=== PATIENT | male | born 1955 | race Caucasian/White ===

== ENCOUNTER 2018-10-19 06:35 | Emergency (ER) | payer OTHER, SELFPAY ==
[2018-10-19] VITALS (27 sets, daily range): BP systolic 96–128; BP diastolic 56–86; PULSE 53–123; RESP 10–20; TEMP 36.1–36.5; O2SAT 96–100; BMI 31.7
[2018-10-19 07:00] LABS: Add Manual Diff / Slide Review NO; Basophils Absolute Auto 0 /uL (0-100); Basophils Percent Auto 0.6 % (0-2); Eosinophils Absolute Auto 100 /uL (0-450); Eosinophils Percent Auto 1.7 % (2-4); Hematocrit 43.5 % (41-53); Hemoglobin 14.6 g/dL (13.5-17.5); Lymphocytes Absolute Auto 1600 /uL (1100-4500); Lymphocytes Percent Auto 23.5 % (25-40); Mean Corpuscular HGB Conc 33.6 % (30-36); Mean Corpuscular Hemoglobin 29.5 PG (26-34); Mean Corpuscular Volume 87.8 fL (80-100); Monocytes Absolute Auto 500 /uL (0-900); Monocytes Percent Auto 7.9 % (3-14); Neutrophils Absolute Auto 4600 /uL (1500-7000); Neutrophils Percent Auto 66.3 % (50-75); Platelet Count 308 X10^3/uL (150-400); Red Blood Cell Count 4.96 X10^6/uL (4.5-5.9); Red Cell Distribution Width 13.8 % (11.6-14.8); White Blood Cell Count 6.9 X10^3/uL (4.5-11.0)
[2018-10-19 07:05] LABS: INR 1.5 (0.9-1.3); Prothrombin Time 17.8 SECONDS (10.1-12.7)
--- NOTE | 2018-10-19 07:07 | ED.ARRPALP ---
HPI - Arrhythmia/Palpitations General Chief Complaint: Arrhythmia/Palpitations Stated Complaint: hx of a-fib x2 weeks Time Seen by Provider: 10/19/18 06:40 Source: patient Mode of arrival: ambulatory Limitations: no limitations History of Present Illness HPI narrative: A 63-year-old male comes in with complaint of AFib since that is not rate controlled. Patient also has a little bit tightness in his chest. He has been having this increasingly over the last 2 weeks. He states that helped will occasionally no stool tightness, given a little shortness of breath with exertion. He states it can be fairly mild exertion like walking [place] with his briefcase periods patient has not been passing out. He has not had any sweats, has a nausea or vomiting. Or diaphoresis. Patient has had atrial fibrillation for about 8 or 9 years. He had a catheterization in 2014 which did show a 50% occlusion of the LAD and he has had an ablation in the past. Patient states he has noticed that is a fibs been a little bit worse over time. He saw his brick setter about 2 weeks ago. They increased his Cardizem from 180 mg daily to 120 mg twice daily and given him metoprolol 25 mg as needed. He is on Xarelto for anticoagulation. He states he has noticed that was on metoprolol his asthma has been acting up a little bit more. Patient states he came in overnight because his heart rate was elevated he took metoprolol twice once at 10:00 p.m. and again at 2:00 a.m.. It improved his heart rate but then it returned. Patient has a history of prostate cancer which they are far itching, he had a TURP in 2007. He has GERD, some seasonal allergies along with his asthma in atrial fibrillation. He has had hernia repair. He does take a statin, Symbicort, as well as pantoprazole and montelukast regularly. through [facility] is his brick setter Related Data Home Medications Medication Instructions Recorded Confirmed budesonide-formoterol [Symbicort] 1 puff INHALATION DIRECTED 10/19/18 Previous Rx's Medication Instructions Recorded dronedarone [Multaq] 400 mg PO BID #60 tab 10/19/18 Allergies Allergy/AdvReac Type Severity Reaction Status Date / Time No Known Drug Allergies Allergy Verified 10/19/18 06:53 Review of Systems Review of Systems ROS Unobtainable: All systems reviewed & are unremarkable except as noted in HPI and below Constitutional Denies chills, Denies fever(s), Denies lethargy and Denies weakness Cardiovascular Reports chest pain (tightness), Denies diaphoresis, Denies syncope, Reports rapid heart rate, Reports pedal edema (comes and goes), Reports irregular heart rhythm, Denies lightheadedness, Denies radiating jaw, neck or arm pain, Denies palpitations, Denies dyspnea and Reports dyspnea on exertion Respiratory Denies chest congestion, Denies dyspnea and Reports dyspnea on exertion Gastrointestinal Gastrointestinal: Denies abdominal pain, Denies change in bowel habits, Denies diarrhea, Denies nausea and Denies vomiting Neurologic Denies syncope and Denies weakness Endocrine Denies palpitations [facility] Medical History (Updated 10/19/18 @ 08:10 by Alma Delia Diggs DO) Asthma (Chronic) GERD (gastroesophageal reflux disease) (Chronic) Paroxysmal A-fib (Chronic) Prostate cancer (Chronic) Seasonal allergies (Chronic) Seasonal allergies (Chronic) Surgical History (Updated 10/19/18 @ 07:43 by Alma Delia Diggs DO) H/O hernia repair (Chronic) History of cardiac catheterization (Chronic) History of radiofrequency ablation (RFA) procedure for cardiac arrhythmia (Chronic) S/P TURP (Chronic) Social History (Updated 10/19/18 @ 07:43 by Alma Delia Diggs DO) Smoking Status: Never smoker alcohol intake: current substance use type: does not use Social History (Updated 10/19/18 @ 07:43 by Alam Delia Diggs DO) Smoking Status: Never smoker alcohol intake: current substance use type: does not use Exam Narrative Exam Narrative: GENERAL: Alert and oriented x three, well-nourished, well-appearing male in no acute distress. HEENT: Head normocephalic, atraumatic, EOMI, pupils reactive, face symmetric, moist mucous membranes NECK: Supple, full range of motion CARDIOVASCULAR: Irregularly irregular rate and rhythm without murmurs, rubs or gallops. No edema bilateral lower extremities. No JVD appreciated. RESPIRATORY: Breath sounds equal bilaterally, no wheezes rales or rhonchi. No tachypnea or accessory muscle use. ABDOMEN: Soft, nontender. Normoactive bowel sounds all 4 quadrants. No guarding or rebound, rigidity, no mass EXTREMITIES: Normal range of motion, no clubbing or edema. Neurovascularly intact NEUROLOGICAL: Cranial nerves II through XII grossly intact. Moving all extremities SKIN: Warm, dry, no petechiae, no rashes or lesions. Initial Vital Signs Initial Vital Signs: Vital Signs Temperature 97.7 F 10/19/18 06:45 Pulse Rate 112 H 10/19/18 06:45 Respiratory Rate 15 10/19/18 06:45 Blood Pressure 106/76 10/19/18 06:45 Pulse Oximetry 100 10/19/18 06:45 Procedures Cardioversion Consent Signed: Yes Indication: afib with rapid ventricular response, hypotension. Cardiac rhythm prior to cardioversion: AFib with RVR Stability: Stable Number of attempts (shocks): 2 Joules used: 150 and 200 Cardiac rhythm post-cardioversion: Sinus bradycardia Procedural Sedation Patient Age: Patient is 5yrs or older Consent signed: Yes Time out performed: Yes Indication: cardioversion ASA Class: II Mallampati Airway Classification: Class II Time of Last PO Intake: 12:00 Preparation: manager cardiac cath applied, pulse oximeter, capnometry used, suction/airway equipment at bedside and IV secured IV Etomidate dose (mg): 9 ED Sedation Level: Moderate (Concious) Patient Tolerated Procedure: Well Complications: none (patient did have some dry heaves about 30 minutes after medications given. Resolved with zofran. ) Course Orders Ordered: ED Orders 10/19/18 10:05 EKG-12 Lead Routine Discontinued Medications Etomidate (Amidate) 9 mg IV NOW ONE Stop: 10/19/18 09:52 Last Admin: 10/19/18 09:58 Dose: 9 mg Sodium Chloride (Normal Saline 0.9%) 1,000 mls @ 1,000 mls/hr IV BOLUS ONE Stop: 10/19/18 08:36 Last Infusion: 10/19/18 09:34 Dose: 0 mls/hr Admin: 10/19/18 07:42 Dose: 1,000 mls/hr Sodium Chloride (Normal Saline 0.9%) 1,000 mls @ 150 mls/hr IV CONT GINNY Last Infusion: 10/19/18 15:28 Dose: 0 mls/hr Admin: 10/19/18 09:41 Dose: 150 mls/hr Ondansetron HCl (Zofran) 4 mg IV NOW ONE Stop: 10/19/18 10:24 Last Admin: 10/19/18 10:23 Dose: 4 mg Vital Signs - 8 hr 10/19/18 09:56 10/19/18 10:00 10/19/18 10:04 Temperature Pulse Rate 94 H 123 H 118 H Respiratory Rate 16 20 12 Blood Pressure Blood Pressure [Left Arm] 97/66 122/84 Blood Pressure [Right Arm] 112/76 Pulse Oximetry 100 100 10/19/18 10:10 10/19/18 10:15 10/19/18 10:20 Temperature Pulse Rate 70 61 62 Respiratory Rate 10 L 12 10 L Blood Pressure Blood Pressure [Left Arm] Blood Pressure [Right Arm] 128/79 109/77 107/77 Pulse Oximetry 99 99 99 10/19/18 10:27 10/19/18 10:30 10/19/18 10:35 Temperature Pulse Rate 62 55 L 62 Respiratory Rate 13 10 L 12 Blood Pressure Blood Pressure [Left Arm] Blood Pressure [Right Arm] 103/70 101/66 Pulse Oximetry 99 99 100 10/19/18 10:41 10/19/18 10:52 10/19/18 10:55 Temperature Pulse Rate 54 L 59 L 59 L Respiratory Rate 14 12 16 Blood Pressure Blood Pressure [Left Arm] 101/73 101/77 Blood Pressure [Right Arm] 106/56 L Pulse Oximetry 100 98 99 10/19/18 11:02 10/19/18 11:30 10/19/18 12:06 Temperature Pulse Rate 58 L 56 L 57 L Respiratory Rate 15 12 19 Blood Pressure Blood Pressure [Left Arm] 105/76 106/80 103/78 Blood Pressure [Right Arm] Pulse Oximetry 99 100 98 10/19/18 12:36 10/19/18 12:59 10/19/18 14:15 Temperature Pulse Rate 53 L 57 L 71 Respiratory Rate 14 18 18 Blood Pressure Blood Pressure [Left Arm] 96/73 101/69 Blood Pressure [Right Arm] Pulse Oximetry 100 100 96 10/19/18 15:10 10/19/18 15:32 Temperature 97.0 F L Pulse Rate 65 66 Respiratory Rate 17 16 Blood Pressure 108/76 Blood Pressure [Left Arm] 108/76 Blood Pressure [Right Arm] Pulse Oximetry 99 99 MDM - Arrhythmia/Palpitations Lab Data Attestation: I reviewed the patient's lab results. Result diagrams: 10/19/18 06:45 10/19/18 06:45 Lab Results 10/19/18 10/19/18 10/19/18 Range/Units 06:45 06:45 06:45 WBC 6.9 (4.5-11.0) X10^3/uL RBC 4.96 (4.5-5.9) X10^6/uL Hgb 14.6 (13.5-17.5) g/dL Hct 43.5 (41-53) % MCV 87.8 (80-100) fL MCH 29.5 (26-34) PG MCHC 33.6 (30-36) % RDW 13.8 (11.6-14.8) % Plt Count 308 (150-400) X10^3/uL Neut % (Auto) 66.3 (50-75) % Lymph % (Auto) 23.5 L (25-40) % Gilliam % (Auto) 7.9 (3-14) % Eos % (Auto) 1.7 L (2-4) % Baso % (Auto) 0.6 (0-2) % Neut # (Auto) 4600 (7428-5974) /uL Lymph # (Auto) 1600 (9095-7649) /uL Gilliam # (Auto) 500 (0-900) /uL Eos # (Auto) 100 (0-450) /uL Baso # (Auto) 0 (0-100) /uL PT 17.8 H (10.1-12.7) SECONDS INR 1.5 H (0.9-1.3) APTT 47 H (26.4-36.2) SECONDS Sodium 140 (137-145) mmol/L Potassium 4.9 (3.4-5.1) mmol/L Chloride 107 (98-107) mmol/L Carbon Dioxide 26 (22-32) mmol/L BUN 21 H (9-20) mg/dL Creatinine 1.20 (0.66-1.25) mg/dL Estimated GFR > 60.0 (>60) mL/min BUN/Creatinine Ratio 17.5 (6-22) Glucose 146 H (80-110) mg/dL Calcium 9.1 (8.4-10.2) mg/dL Total Bilirubin 0.5 (0.2-1.3) mg/dL AST 21 (17-59) IU/L ALT 34 (21-72) IU/L Alkaline Phosphatase 65 (38-126) U/L Troponin I < 0.012 (0.01-0.034) ng/mL B-Natriuretic Peptide 394 H (<100) Total Protein 6.7 (6.3-8.2) g/dL Albumin 3.9 (3.5-5.0) g/dL Globulin 2.8 (1.7-4.1) g/dL Albumin/Globulin Ratio 1.4 (1.0-2.8) Imaging Data Chest x-ray: Attestation: I personally reviewed and interpreted this imaging study as follows: Radiologist's impression: [address] [address] XRay Report Signed Patient: Jamie Barros [facility]#: [id number] : 7Acct:[id number] Age/Sex: 63 / MDate of Service: 10/19/18 Loc: ED Accession Number: [id number] Procedure: XR chest 1V Ordering Provider: Alma Delia Diggs D.O. PROCEDURE: XR CHEST 1V INDICATIONS: afib, chest tightness TECHNIQUE: One view of the chest was acquired. COMPARISON: None. FINDINGS: Surgical changes and devices: None. Lungs and pleura: Lungs are clear. No pleural effusions or pneumothorax. Mediastinum: Mediastinal contours appear normal. Heart size is normal. Bones and chest wall: No suspicious bony lesions. Overlying soft tissues appear unremarkable. IMPRESSION: The patient positioning is lordotic, which accentuates the cardiac silhouette but true cardiomegaly does not appear present. No sign of CHF. Dictated by: Rodrigo Martínez M.D. on 10/19/2018 at 8:22 Approved by: Rodrigo Martínez M.D. on 10/19/2018 at 8:23 ECG Data Attestation: I personally reviewed and interpreted this ECG as follows: Prior ECG tracings: not available for review Interpretation: AFib with rapid ventricular response. Rate of 115 QRS of 116 QTC 389. Incomplete right bundle branch block. EKG 2. Shows a sinus bradycardia with a rate of 54 P are of 186, QRS of 119 and QTC of 408. Patient has RSR in [address] elevation appreciated. ST segments appear similar to prior EKG from today as well as EKG from 10/08/2018 from his cardiology office. MDM Narrative Medical decision making narrative: Patient's brick setter Dr. rascon was contacted for old EKG, echo as well as last visit. Patient's lab work shows a slight elevation in BNP but otherwise normal troponin and lab work. Chest x-ray does not show acute change. Patient's prior EKG does appears similar. We were able to obtain 1 from his cardiology office. Discussed with patient about possibly cardioversion. He is on Xarelto, he is a little hypotensive. Spoke with Dr. Wright if patient has been taking his roll so daily and has not had any missed doses for at least a month a cardioversion would be an option. If it is successful he would recommend Multaq for and mg twice daily and decrease Cardizem to 120 mg once daily. Holding any beta-dewayne. Patient states he does have the long acting Cardizem at home and plenty available. Patient had some dryheaving about a 1/2 hour after medication. Received some Zofran. Patient falls asleep very quickly. He also seems have a little sleep apnea treating his cardioversion. Patient and I discussed this. He has follow-up locally with cardiology but not until November asked to contact for sooner follow-up or he can follow up with his brick setter in [place]. Patient did not have a ride initially. He was able to find a ride 3 co-worker. Discharge Plan Departure Patient Disposition: Home Clinical Impression: Atrial fibrillation with RVR Discharge Date/Time: 10/19/18 15:35 Interventions: ED Discharge Assessment Last Done: 10/19/18 15:32 Instructions: DI for Atrial Fibrillation Activity Restrictions/Additional Instructions: Follow-up with Cardiology, call for an appointment in the next week. Also discuss with your physician about evaluation for sleep apnea. Do not drive, perform has activities or make any major decisions until tomorrow. Start Multaq 400 mg twice daily. Decrease your Cardizem 120 mg once daily. Stop metoprolol. Make sure your drinking plenty of fluids. Return to the emergency department for new weakness, passing out or lightheadedness, chest pain, shortness of breath, fevers greater 100.4 F, persistent AFib with elevated heart rate, persistent vomiting, black or bloody stools or other new or concerning symptoms. Prescriptions: New Multaq 400 mg tablet 400 mg PO BID Qty: 60 RF: 0 No Action Symbicort 80-4.5 mcg/actuation HFA aerosol inhaler 1 puff Inhalation DIRECTED RF: 0 Referrals: Mary Grace Michelle MD [Physician] -
[2018-10-19 07:08] LABS: PTT Partial Thromboplastin Tim 47 SECONDS (26.4-36.2)
[2018-10-19 07:09] LABS: Alanine Aminotransferase 34 IU/L (21-72); Albumin 3.9 g/dL (3.5-5.0); Albumin Globulin Ratio 1.4 (1.0-2.8); Alkaline Phosphatase 65 U/L (38-126); Aspartate Aminotransferase 21 IU/L (17-59); BUN Creatinine Ratio 17.5 (6-22); Bilirubin Total 0.5 mg/dL (0.2-1.3); Blood Urea Nitrogen 21 mg/dL (9-20); Calcium 9.1 mg/dL (8.4-10.2); Carbon Dioxide 26 mmol/L (22-32); Chloride 107 mmol/L (98-107); Estimated Glomerular Filt Rate > 60.0 mL/min (>60); Globulin 2.8 g/dL (1.7-4.1); Glucose 146 mg/dL (80-110); HEMOLYSIS < 15 (0-50); Potassium 4.9 mmol/L (3.4-5.1); Sodium 140 mmol/L (137-145); Total Protein 6.7 g/dL (6.3-8.2)
--- NOTE | 2018-10-19 07:18 | ED_ITS ---
HPI - Arrhythmia/Palpitations General Chief Complaint: Arrhythmia/Palpitations Stated Complaint: hx of a-fib x2 weeks Time Seen by Provider: 10/19/18 06:40 Source: patient Mode of arrival: ambulatory Limitations: no limitations History of Present Illness HPI narrative: A 63-year-old male comes in with complaint of AFib since that is not rate controlled. Patient also has a little bit tightness in his chest. He has been having this increasingly over the last 2 weeks. He states that helped will occasionally no stool tightness, given a little shortness of breath with exertion. He states it can be fairly mild exertion like walking up a [place] with his briefcase periods patient has not been passing out. He has not had any sweats, has a nausea or vomiting. Or diaphoresis. Patient has had atrial fibrillation for about 8 or 9 years. He had a catheterization in 2014 which did show a 50% occlusion of the LAD and he has had an ablation in the past. Patient states he has noticed that is a fibs been a little bit worse over time. He saw his advertiser about 2 weeks ago. They increased his Cardizem from 180 mg daily to 120 mg twice daily and given him metoprolol 25 mg as needed. He is on Xarelto for anticoagulation. He states he has noticed that was on metoprolol his asthma has been acting up a little bit more. Patient states he came in overnight because his heart rate was elevated he took metoprolol twice once at 10:00 p.m. and again at 2:00 a.m.. It improved his heart rate but then it returned. Patient has a history of prostate cancer which they are far itching, he had a TURP in 2007. He has GERD, some seasonal allergies along with his asthma in atrial fibrillation. He has had hernia repair. He does take a statin, Symbicort, as well as pantoprazole and montelukast regularly. through [facility] is his advertiser Related Data Home Medications Medication Instructions Recorded Confirmed budesonide-formoterol [Symbicort] 1 puff INHALATION DIRECTED 10/19/18 Previous Rx's Medication Instructions Recorded dronedarone [Multaq] 400 mg PO BID #60 tab 10/19/18 Allergies Allergy/AdvReac Type Severity Reaction Status Date / Time No Known Drug Allergies Allergy Verified 10/19/18 06:53 Review of Systems Review of Systems ROS Unobtainable: All systems reviewed & are unremarkable except as noted in HPI and below Constitutional Denies chills, Denies fever(s), Denies lethargy and Denies weakness Cardiovascular Reports chest pain (tightness), Denies diaphoresis, Denies syncope, Reports rapid heart rate, Reports pedal edema (comes and goes), Reports irregular heart rhythm, Denies lightheadedness, Denies radiating jaw, neck or arm pain, Denies palpitations, Denies dyspnea and Reports dyspnea on exertion Respiratory Denies chest congestion, Denies dyspnea and Reports dyspnea on exertion Gastrointestinal Gastrointestinal: Denies abdominal pain, Denies change in bowel habits, Denies diarrhea, Denies nausea and Denies vomiting Neurologic Denies syncope and Denies weakness Endocrine Denies palpitations [facility] Medical History (Updated 10/19/18 @ 08:10 by Alma Delia Diggs DO) Asthma (Chronic) GERD (gastroesophageal reflux disease) (Chronic) Paroxysmal A-fib (Chronic) Prostate cancer (Chronic) Seasonal allergies (Chronic) Seasonal allergies (Chronic) Surgical History (Updated 10/19/18 @ 07:43 by Alma Delia Diggs DO) H/O hernia repair (Chronic) History of cardiac catheterization (Chronic) History of radiofrequency ablation (RFA) procedure for cardiac arrhythmia (Chronic) S/P TURP (Chronic) Social History (Updated 10/19/18 @ 07:43 by Alma Delia Diggs DO) Smoking Status: Never smoker alcohol intake: current substance use type: does not use Social History (Updated 10/19/18 @ 07:43 by Alma Delia Diggs DO) Smoking Status: Never smoker alcohol intake: current substance use type: does not use Exam Narrative Exam Narrative: GENERAL: Alert and oriented x three, well-nourished, well- appearing male in no acute distress. HEENT: Head normocephalic, atraumatic, EOMI, pupils reactive, face symmetric, moist mucous membranes NECK: Supple, full range of motion CARDIOVASCULAR: Irregularly irregular rate and rhythm without murmurs, rubs or gallops. No edema bilateral lower extremities. No JVD appreciated. RESPIRATORY: Breath sounds equal bilaterally, no wheezes rales or rhonchi. No tachypnea or accessory muscle use. ABDOMEN: Soft, nontender. Normoactive bowel sounds all 4 quadrants. No guarding or rebound, rigidity, no mass EXTREMITIES: Normal range of motion, no clubbing or edema. Neurovascularly intact NEUROLOGICAL: Cranial nerves II through XII grossly intact. Moving all extremities SKIN: Warm, dry, no petechiae, no rashes or lesions. Initial Vital Signs Initial Vital Signs: Vital Signs Temperature 97.7 F 10/19/18 06:45 Pulse Rate 112 H 10/19/18 06:45 Respiratory Rate 15 10/19/18 06:45 Blood Pressure 106/76 10/19/18 06:45 Pulse Oximetry 100 10/19/18 06:45 Procedures Cardioversion Consent Signed: Yes Indication: afib with rapid ventricular response, hypotension. Cardiac rhythm prior to cardioversion: AFib with RVR Stability: Stable Number of attempts (shocks): 2 Joules used: 150 and 200 Cardiac rhythm post-cardioversion: Sinus bradycardia Procedural Sedation Patient Age: Patient is 5yrs or older Consent signed: Yes Time out performed: Yes Indication: cardioversion ASA Class: II Mallampati Airway Classification: Class II Time of Last PO Intake: 12:00 Preparation: youth nutritional monitor applied, pulse oximeter, capnometry used, suction/airway equipment at bedside and IV secured IV Etomidate dose (mg): 9 ED Sedation Level: Moderate (Concious) Patient Tolerated Procedure: Well Complications: none (patient did have some dry heaves about 30 minutes after medications given. Resolved with zofran. ) Course Orders Ordered: ED Orders 10/19/18 10:05 EKG-12 Lead Routine Discontinued Medications Etomidate (Amidate) 9 mg IV NOW ONE Stop: 10/19/18 09:52 Last Admin: 10/19/18 09:58 Dose: 9 mg Sodium Chloride (Normal Saline 0.9%) 1,000 mls @ 1,000 mls/hr IV BOLUS ONE Stop: 10/19/18 08:36 Last Infusion: 10/19/18 09:34 Dose: 0 mls/hr Admin: 10/19/18 07:42 Dose: 1,000 mls/hr Sodium Chloride (Normal Saline 0.9%) 1,000 mls @ 150 mls/hr IV CONT GINNY Last Infusion: 10/19/18 15:28 Dose: 0 mls/hr Admin: 10/19/18 09:41 Dose: 150 mls/hr Ondansetron HCl (Zofran) 4 mg IV NOW ONE Stop: 10/19/18 10:24 Last Admin: 10/19/18 10:23 Dose: 4 mg Vital Signs - 8 hr 10/19/18 09:56 10/19/18 10:00 10/19/18 10:04 Temperature Pulse Rate 94 H 123 H 118 H Respiratory Rate 16 20 12 Blood Pressure Blood Pressure [Left Arm] 97/66 122/84 Blood Pressure [Right Arm] 112/76 Pulse Oximetry 100 100 10/19/18 10:10 10/19/18 10:15 10/19/18 10:20 Temperature Pulse Rate 70 61 62 Respiratory Rate 10 L 12 10 L Blood Pressure Blood Pressure [Left Arm] Blood Pressure [Right Arm] 128/79 109/77 107/77 Pulse Oximetry 99 99 99 10/19/18 10:27 10/19/18 10:30 10/19/18 10:35 Temperature Pulse Rate 62 55 L 62 Respiratory Rate 13 10 L 12 Blood Pressure Blood Pressure [Left Arm] Blood Pressure [Right Arm] 103/70 101/66 Pulse Oximetry 99 99 100 10/19/18 10:41 10/19/18 10:52 10/19/18 10:55 Temperature Pulse Rate 54 L 59 L 59 L Respiratory Rate 14 12 16 Blood Pressure Blood Pressure [Left Arm] 101/73 101/77 Blood Pressure [Right Arm] 106/56 L Pulse Oximetry 100 98 99 10/19/18 11:02 10/19/18 11:30 10/19/18 12:06 Temperature Pulse Rate 58 L 56 L 57 L Respiratory Rate 15 12 19 Blood Pressure Blood Pressure [Left Arm] 105/76 106/80 103/78 Blood Pressure [Right Arm] Pulse Oximetry 99 100 98 10/19/18 12:36 10/19/18 12:59 10/19/18 14:15 Temperature Pulse Rate 53 L 57 L 71 Respiratory Rate 14 18 18 Blood Pressure Blood Pressure [Left Arm] 96/73 101/69 Blood Pressure [Right Arm] Pulse Oximetry 100 100 96 10/19/18 15:10 10/19/18 15:32 Temperature 97.0 F L Pulse Rate 65 66 Respiratory Rate 17 16 Blood Pressure 108/76 Blood Pressure [Left Arm] 108/76 Blood Pressure [Right Arm] Pulse Oximetry 99 99 MDM - Arrhythmia/Palpitations Lab Data Attestation: I reviewed the patient's lab results. Result diagrams: 10/19/18 06:45 10/19/18 06:45 Lab Results 10/19/18 10/19/18 10/19/18 Range/Units 06:45 06:45 06:45 WBC 6.9 (4.5-11.0) X10^3/uL RBC 4.96 (4.5-5.9) X10^6/uL Hgb 14.6 (13.5-17.5) g/dL Hct 43.5 (41-53) % MCV 87.8 (80-100) fL MCH 29.5 (26-34) PG MCHC 33.6 (30-36) % RDW 13.8 (11.6-14.8) % Plt Count 308 (150-400) X10^3/uL Neut % (Auto) 66.3 (50-75) % Lymph % (Auto) 23.5 L (25-40) % [place] % (Auto) 7.9 (3-14) % Eos % (Auto) 1.7 L (2-4) % Baso % (Auto) 0.6 (0-2) % Neut # (Auto) 4600 (2637-8442) /uL Lymph # (Auto) 1600 (0181-0509) /uL [place] # (Auto) 500 (0-900) /uL Eos # (Auto) 100 (0-450) /uL Baso # (Auto) 0 (0-100) /uL PT 17.8 H (10.1-12.7) SECONDS INR 1.5 H (0.9-1.3) APTT 47 H (26.4-36.2) SECONDS Sodium 140 (137-145) mmol/L Potassium 4.9 (3.4-5.1) mmol/L Chloride 107 (98-107) mmol/L Carbon Dioxide 26 (22-32) mmol/L BUN 21 H (9-20) mg/dL Creatinine 1.20 (0.66-1.25) mg/dL Estimated GFR > 60.0 (>60) mL/min BUN/Creatinine Ratio 17.5 (6-22) Glucose 146 H (80-110) mg/dL Calcium 9.1 (8.4-10.2) mg/dL Total Bilirubin 0.5 (0.2-1.3) mg/dL AST 21 (17-59) IU/L ALT 34 (21-72) IU/L Alkaline Phosphatase 65 (38-126) U/L Troponin I < 0.012 (0.01-0.034) ng/mL B-Natriuretic Peptide 394 H (<100) Total Protein 6.7 (6.3-8.2) g/dL Albumin 3.9 (3.5-5.0) g/dL Globulin 2.8 (1.7-4.1) g/dL Albumin/Globulin Ratio 1.4 (1.0-2.8) Imaging Data Chest x-ray: Attestation: I personally reviewed and interpreted this imaging study as follows: Radiologist's impression: [address] [address] XRay Report Signed Patient: Jamie Barros [facility]#: [id number] : 7Acct:[id number] Age/Sex: 63 / MDate of Service: 10/19/18 Loc: ED Accession Number: [id number] Procedure: XR chest 1V Ordering Provider: Alma Delia Diggs D.O. PROCEDURE: XR CHEST 1V INDICATIONS: afib, chest tightness TECHNIQUE: One view of the chest was acquired. COMPARISON: None. FINDINGS: Surgical changes and devices: None. Lungs and pleura: Lungs are clear. No pleural effusions or pneumothorax. Mediastinum: Mediastinal contours appear normal. Heart size is normal. Bones and chest wall: No suspicious bony lesions. Overlying soft tissues appear unremarkable. IMPRESSION: The patient positioning is lordotic, which accentuates the cardiac silhouette but true cardiomegaly does not appear present. No sign of CHF. Dictated by: Rodrigo Martínez M.D. on 10/19/2018 at 8:22 Approved by: Rodrigo Martínez M.D. on 10/19/2018 at 8:23 ECG Data Attestation: I personally reviewed and interpreted this ECG as follows: Prior ECG tracings: not available for review Interpretation: AFib with rapid ventricular response. Rate of 115 QRS of 116 QTC 389. Incomplete right bundle branch block. EKG 2. Shows a sinus bradycardia with a rate of 54 P are of 186, QRS of 119 and QTC of 408. Patient has RSR in [address] elevation appreciated. ST segments appear similar to prior EKG from today as well as EKG from 10/08/2018 from his cardiology office. MDM Narrative Medical decision making narrative: Patient's advertiser Dr. rascon was contacted for old EKG, echo as well as last visit. Patient's lab work shows a slight elevation in BNP but otherwise normal troponin and lab work. Chest x-ray does not show acute change. Patient's prior EKG does appears similar. We were able to obtain 1 from his cardiology office. Discussed with patient about possibly cardioversion. He is on Xarelto, he is a little hypotensive. Spoke with Dr. Wright if patient has been taking his roll so daily and has not had any missed doses for at least a month a cardioversion would be an option. If it is successful he would recommend Multaq for and mg twice daily and decrease Cardizem to 120 mg once daily. Holding any beta-dewayne. Patient states he does have the long acting Cardizem at home and plenty available. Patient had some dryheaving about a 1/2 hour after medication. Received some Zofran. Patient falls asleep very quickly. He also seems have a little sleep apnea treating his cardioversion. Patient and I discussed this. He has follow- up locally with cardiology but not until November asked to contact for sooner follow-up or he can follow up with his advertiser in [place]. Patient did not have a ride initially. He was able to find a ride 3 co-worker. Discharge Plan Departure Patient Disposition: Home Clinical Impression: Atrial fibrillation with RVR Discharge Date/Time: 10/19/18 15:35 Interventions: ED Discharge Assessment Last Done: 10/19/18 15:32 Instructions: DI for Atrial Fibrillation Activity Restrictions/Additional Instructions: Follow-up with Cardiology, call for an appointment in the next week. Also discuss with your physician about evaluation for sleep apnea. Do not drive, perform has activities or make any major decisions until tomorrow. Start Multaq 400 mg twice daily. Decrease your Cardizem 120 mg once daily. Stop metoprolol. Make sure your drinking plenty of fluids. Return to the emergency department for new weakness, passing out or lighthea dedness, chest pain, shortness of breath, fevers greater 100.4 F, persistent AFib with elevated heart rate, persistent vomiting, black or bloody stools or other new or concerning symptoms. Prescriptions: New Multaq 400 mg tablet 400 mg PO BID Qty: 60 RF: 0 No Action Symbicort 80-4.5 mcg/actuation HFA aerosol inhaler 1 puff Inhalation DIRECTED RF: 0 Referrals: Mary Grace Michelle MD [Physician] -
[2018-10-19 07:21] LABS: Troponin I < 0.012 ng/mL (0.01-0.034)
[2018-10-19 07:26] LABS: B Type Natriuretic Peptide 394 (<100)
[2018-10-19] MEDS: SODIUM CHLORIDE 0.9% 1,000 ML 1000 ML IV (07:42)
[2018-10-19] MEDS: SODIUM CHLORIDE 0.9% 1,000 ML 150 ML IV (09:41)
[2018-10-19] MEDS: ETOMIDATE 2 MG/ML VIAL 9 MG IV (09:58)
[2018-10-19] MEDS: ONDANSETRON 4 MG/2 ML INJ IV (10:23)
--- NOTE | 2018-10-19 10:30 | PC.NURSE ---
tolerated cardioversion. woke up and started to feel clammy and nauseated. dry heeves, vital signs stable. no chest pain. zofran given with good results. pt remains sleepy, easily arousable. frequent reminders to take a deep breath. md aware
--- NOTE | 2018-10-19 13:36 | PC.NURSE ---
Patients respirations keep dropping when he falls asleep. Staff and myself have been frequently checking on the patient due to Apnea alarms. Patient states as soon as he falls asleep he is having REM & instantly starts dreaming.
== END 2018-10-19 15:35 | disposition home or self-care (01) ==
PROVIDERS: Emergency Medicine; Emergency Provider Emergency Medicine
DX: I48.91 Unspecified atrial fibrillation (principal)
CPT/HCPCS: 36591; 71045; 80053; 83880; 84484; 85025; 85610; 85730; 92960; 93005; 96361; 96374; 96375; 99285; 99291; J2405

== ENCOUNTER → 2018-11-27 14:54 | Outpatient (CLI) | payer OTHER, SELFPAY ==
[2018-11-27 17:00] LABS: Prostate Specific Antigen 0.802 ng/mL (0.10-4.00)
== END ==
PROVIDERS: Visit Provider Internal Medicine
DX: C61 Malignant neoplasm of prostate (principal)
CPT/HCPCS: 36415; 84153

== ENCOUNTER → 2019-01-17 07:40 | Outpatient (CLI) | payer OTHER, SELFPAY ==
[2019-01-17 08:54] LABS: Alanine Aminotransferase 40 IU/L (21-72); Albumin 4.3 g/dL (3.5-5.0); Albumin Globulin Ratio 1.4 (1.0-2.8); Alkaline Phosphatase 64 U/L (38-126); Aspartate Aminotransferase 26 IU/L (17-59); BUN Creatinine Ratio 19.1 (6-22); Bilirubin Total 0.7 mg/dL (0.2-1.3); Blood Urea Nitrogen 21 mg/dL (9-20); Calcium 9.7 mg/dL (8.4-10.2); Carbon Dioxide 28 mmol/L (22-32); Chloride 105 mmol/L (98-107); Cholesterol 93 mg/dL (140-199); Estimated Glomerular Filt Rate > 60.0 mL/min (>60); Glucose 122 mg/dL (80-110); HDL Cholesterol 41 mg/dL (40-60); HEMOLYSIS < 15 (0-50); LDL Cholesterol Calculated 38 mg/dL (<100); Potassium 4.4 mmol/L (3.4-5.1); Sodium 141 mmol/L (137-145); Total Protein 7.3 g/dL (6.3-8.2); Triglycerides 68 mg/dL (35-150)
[2019-01-17 08:55] LABS: Add Manual Diff / Slide Review NO; Basophils Absolute Auto 0 /uL (0-100); Basophils Percent Auto 0.6 % (0-2); Eosinophils Absolute Auto 100 /uL (0-450); Eosinophils Percent Auto 1.2 % (2-4); Hemoglobin 14.8 g/dL (13.5-17.5); Lymphocytes Absolute Auto 1300 /uL (1100-4500); Lymphocytes Percent Auto 22.5 % (25-40); Mean Corpuscular HGB Conc 34.3 % (30-36); Mean Corpuscular Volume 87.4 fL (80-100); Monocytes Absolute Auto 600 /uL (0-900); Monocytes Percent Auto 9.8 % (3-14); Neutrophils Absolute Auto 3800 /uL (1500-7000); Neutrophils Percent Auto 65.9 % (50-75); Platelet Count 273 X10^3/uL (150-400); Red Blood Cell Count 4.93 X10^6/uL (4.5-5.9); Red Cell Distribution Width 13.4 % (11.6-14.8); White Blood Cell Count 5.8 X10^3/uL (4.5-11.0)
[2019-01-17 09:52] LABS: Thyroid Stimulating Hormone 2.67 uIU/mL (0.47-4.68)
== END ==
PROVIDERS: Visit Provider Internal Medicine Cardiovascular Disease
DX: I48.0 Paroxysmal atrial fibrillation (principal); E78.5 Hyperlipidemia, unspecified
CPT/HCPCS: 36415; 80053; 80061; 83735; 84443; 85025

== ENCOUNTER → 2019-02-28 16:56 | Outpatient (CLI) | payer OTHER, SELFPAY | PROVIDERS: PCP Internal Medicine | DX: Z23 Encounter for immunization (principal) | CPT/HCPCS: 90471; 90686 ==

== ENCOUNTER → 2019-06-17 08:20 | Outpatient (CLI) | payer OTHER, SELFPAY ==
[2019-06-17 10:13] LABS: Alanine Aminotransferase 32 IU/L (<50); Albumin 4.3 g/dL (3.5-5.0); Albumin Globulin Ratio 1.4 (1.0-2.8); Alkaline Phosphatase 65 U/L (38-126); Aspartate Aminotransferase 30 IU/L (17-59); Bilirubin Total 0.6 mg/dL (0.2-1.3); Bilirubin Unconjugated 0.6 mg/dL (0.0-1.1); Globulin 3.1 g/dL (1.7-4.1); HEMOLYSIS < 15 (0-50); Total Protein 7.4 g/dL (6.3-8.2)
== END ==
PROVIDERS: PCP Internal Medicine; Visit Provider Internal Medicine Cardiovascular Disease
DX: Z79.899 Other long term (current) drug therapy (principal)
CPT/HCPCS: 36415; 80076

== ENCOUNTER → 2019-10-17 07:12 | Outpatient (CLI) | payer OTHER, SELFPAY ==
[2019-10-17 08:16] LABS: Add Manual Diff / Slide Review NO; Basophils Absolute Auto 0 /uL (0-100); Basophils Percent Auto 0.4 % (0-2); Eosinophils Absolute Auto 100 /uL (0-450); Hematocrit 42.5 % (41-53); Hemoglobin 14.5 g/dL (13.5-17.5); Lymphocytes Absolute Auto 1600 /uL (1100-4500); Lymphocytes Percent Auto 21.1 % (25-40); Mean Corpuscular HGB Conc 34.2 % (30-36); Mean Corpuscular Hemoglobin 29.9 PG (26-34); Mean Corpuscular Volume 87.5 fL (80-100); Monocytes Absolute Auto 900 /uL (0-900); Monocytes Percent Auto 11.7 % (3-14); Neutrophils Absolute Auto 4800 /uL (1500-7000); Neutrophils Percent Auto 64.8 % (50-75); Platelet Count 292 X10^3/uL (150-400); Red Blood Cell Count 4.86 X10^6/uL (4.5-5.9); Red Cell Distribution Width 13.9 % (11.6-14.8); White Blood Cell Count 7.4 X10^3/uL (4.5-11.0)
[2019-10-17 08:38] LABS: Alanine Aminotransferase 148 IU/L (<50); Albumin 4.1 g/dL (3.5-5.0); Albumin Globulin Ratio 1.4 (1.0-2.8); Alkaline Phosphatase 75 U/L (38-126); Aspartate Aminotransferase 42 IU/L (17-59); BUN Creatinine Ratio 15.1 (6-22); Bilirubin Total 0.7 mg/dL (0.2-1.3); Blood Urea Nitrogen 19 mg/dL (9-20); Calcium 9.5 mg/dL (8.4-10.2); Carbon Dioxide 27 mmol/L (22-32); Chloride 104 mmol/L (98-107); Cholesterol 88 mg/dL (140-199); Estimated Glomerular Filt Rate 57.8 mL/min (>60); Glucose 123 mg/dL (80-110); HDL Cholesterol 28 mg/dL (40-60); HEMOLYSIS < 15 (0-50); LDL Cholesterol Calculated 40 mg/dL (<100); Potassium 4.9 mmol/L (3.4-5.1); Sodium 141 mmol/L (137-145); Total Protein 7.1 g/dL (6.3-8.2); Triglycerides 99 mg/dL (35-150)
[2019-10-17 09:06] LABS: Prostate Specific Antigen 1.04 ng/mL (0.10-4.00)
[2019-10-17 11:15] LABS: Thyroid Stimulating Hormone 2.56 uIU/mL (0.47-4.68)
== END ==
PROVIDERS: PCP Internal Medicine; Referring Provider Internal Medicine; Visit Provider Internal Medicine
DX: Z13.1 Encounter for screening for diabetes mellitus (principal); Z13.220 Encounter for screening for lipoid disorders; Z13.6 Encounter for screening for cardiovascular disorders; C61 Malignant neoplasm of prostate; G47.33 Obstructive sleep apnea (adult) (pediatric); Z79.01 Long term (current) use of anticoagulants
CPT/HCPCS: 36415; 80053; 80061; 84153; 84443; 85025

== ENCOUNTER → 2019-10-20 14:52 | Outpatient (CLI) | payer OTHER, SELFPAY ==
[2019-10-21 05:53] LABS: COVID19 Sendout Not Detected (Not Detect)
== END ==
PROVIDERS: PCP Internal Medicine; Visit Provider Physician Assistant
DX: J02.9 Acute pharyngitis, unspecified (principal)
CPT/HCPCS: 87070; 87635

== ENCOUNTER → 2020-02-20 08:24 | Outpatient (CLI) | payer OTHER, SELFPAY ==
[2020-02-20 09:14] LABS: Alanine Aminotransferase 39 IU/L (<50); Albumin 4.1 g/dL (3.5-5.0); Albumin Globulin Ratio 1.3 (1.0-2.8); Alkaline Phosphatase 70 U/L (38-126); Aspartate Aminotransferase 31 IU/L (17-59); BUN Creatinine Ratio 15.6 (6-22); Bilirubin Total 0.8 mg/dL (0.2-1.3); Bilirubin Unconjugated 0.8 mg/dL (0.0-1.1); Blood Urea Nitrogen 19 mg/dL (9-20); Carbon Dioxide 31 mmol/L (22-32); Chloride 104 mmol/L (98-107); Globulin 3.1 g/dL (1.7-4.1); Glucose 140 mg/dL (80-110); HEMOLYSIS < 15 (0-50); Potassium 4.5 mmol/L (3.4-5.1); Sodium 139 mmol/L (137-145); Total Protein 7.2 g/dL (6.3-8.2)
[2020-02-25 09:12] LABS: Percent Free Testosterone 2.92 % (1.50-4.20); Testosterone Free 12.76 ng/dL (5.00-21.00)
== END ==
PROVIDERS: PCP Internal Medicine; Referring Provider Internal Medicine; Visit Provider Internal Medicine
DX: R53.81 Other malaise (principal); R53.83 Other fatigue; R74.02 Elevation of levels of lactic acid dehydrogenase [LDH]
CPT/HCPCS: 36415; 80048; 80076; 84402; 84403

== ENCOUNTER → 2020-02-27 | Outpatient (CLI) | payer OTHER, SELFPAY | PROVIDERS: PCP Internal Medicine; Referring Provider Internal Medicine; Visit Provider Internal Medicine | DX: Z23 Encounter for immunization (principal) | CPT/HCPCS: 90471; 90686 ==

== ENCOUNTER → 2020-04-15 08:02 | Outpatient (CLI) | payer OTHER, SELFPAY ==
[2020-04-15 09:13] LABS: Alanine Aminotransferase 30 IU/L (<50); Albumin 3.9 g/dL (3.5-5.0); Albumin Globulin Ratio 1.4 (1.0-2.8); Alkaline Phosphatase 65 U/L (38-126); Aspartate Aminotransferase 24 IU/L (17-59); Bilirubin Total 0.7 mg/dL (0.2-1.3); Blood Urea Nitrogen 14 mg/dL (9-20); Calcium 9.4 mg/dL (8.4-10.2); Carbon Dioxide 28 mmol/L (22-32); Chloride 106 mmol/L (98-107); Cholesterol 85 mg/dL (140-199); Estimated Glomerular Filt Rate > 60.0 mL/min (>60); Globulin 2.8 g/dL (1.7-4.1); Glucose 148 mg/dL (80-110); HDL Cholesterol 44 mg/dL (40-60); HEMOLYSIS < 15 (0-50); LDL Cholesterol Calculated 28 mg/dL (<100); Potassium 4.5 mmol/L (3.4-5.1); Sodium 139 mmol/L (137-145); Total Protein 6.7 g/dL (6.3-8.2); Triglycerides 66 mg/dL (35-150)
[2020-04-15 09:43] LABS: Thyroid Stimulating Hormone 1.93 uIU/mL (0.47-4.68)
== END ==
PROVIDERS: PCP Internal Medicine; Referring Provider Internal Medicine Cardiovascular Disease; Visit Provider Internal Medicine Cardiovascular Disease
DX: E78.5 Hyperlipidemia, unspecified (principal)
CPT/HCPCS: 36415; 80053; 80061; 84443

== ENCOUNTER → 2020-05-28 10:53 | Outpatient (CLI) | payer OTHER, SELFPAY ==
[2020-05-28] MEDS: COVID-19 VACC(MODERNA-1)/PF 100 MCG/0.5 ML VIAL IM (10:59)
== END ==
PROVIDERS: PCP Internal Medicine; Visit Provider Internal Medicine
DX: Z23 Encounter for immunization (principal)
CPT/HCPCS: 0011A; 91301

== ENCOUNTER → 2020-06-24 10:52 | Outpatient (CLI) | payer OTHER, SELFPAY ==
[2020-06-24] MEDS: COVID-19 VACC #2, MRNA(MOD) 100 MCG/0.5 ML VIAL IM (10:56)
== END ==
PROVIDERS: PCP Internal Medicine; Visit Provider Internal Medicine
DX: Z23 Encounter for immunization (principal)
CPT/HCPCS: 0012A; 91301

== ENCOUNTER → 2020-10-26 07:46 | Outpatient (CLI) | payer OTHER, SELFPAY ==
[2020-10-26 08:27] LABS: Add Manual Diff / Slide Review NO; Basophils Absolute Auto 0 /uL (0-100); Basophils Percent Auto 0.6 % (0-2); Eosinophils Absolute Auto 100 /uL (0-450); Eosinophils Percent Auto 1.5 % (2-4); Hematocrit 42.2 % (41-53); Hemoglobin 14.3 g/dL (13.5-17.5); Hemoglobin A1C% w Est Avg Glu 6.8 % (4.0-6.0); Lymphocytes Absolute Auto 1000 /uL (1100-4500); Lymphocytes Percent Auto 20.3 % (25-40); Mean Corpuscular HGB Conc 33.9 % (30-36); Mean Corpuscular Hemoglobin 30.1 PG (26-34); Mean Corpuscular Volume 88.8 fL (80-100); Monocytes Absolute Auto 500 /uL (0-900); Monocytes Percent Auto 10.7 % (3-14); Neutrophils Absolute Auto 3400 /uL (1500-7000); Neutrophils Percent Auto 66.9 % (50-75); Platelet Count 259 X10^3/uL (150-400); Red Blood Cell Count 4.76 X10^6/uL (4.5-5.9); Red Cell Distribution Width 13.6 % (11.6-14.8); White Blood Cell Count 5.1 X10^3/uL (4.5-11.0)
[2020-10-26 08:34] LABS: Alanine Aminotransferase 29 IU/L (<50); Albumin Globulin Ratio 1.4 (1.0-2.8); Alkaline Phosphatase 55 U/L (38-126); Aspartate Aminotransferase 26 IU/L (17-59); Bilirubin Total 0.5 mg/dL (0.2-1.3); Blood Urea Nitrogen 14 mg/dL (9-20); Carbon Dioxide 28 mmol/L (22-32); Chloride 106 mmol/L (98-107); Cholesterol 87 mg/dL (140-199); Estimated Glomerular Filt Rate > 60.0 mL/min (>60); Globulin 2.8 g/dL (1.7-4.1); Glucose 133 mg/dL (80-110); HDL Cholesterol 40 mg/dL (40-60); HEMOLYSIS < 15 (0-50); LDL Cholesterol Calculated 35 mg/dL (<100); Potassium 4.5 mmol/L (3.4-5.1); Sodium 140 mmol/L (137-145); Total Protein 6.8 g/dL (6.3-8.2); Triglycerides 61 mg/dL (35-150)
[2020-10-26 09:02] LABS: Prostate Specific Antigen Scrn 1.23 ng/mL (0.1-4.0)
[2020-10-26 09:03] LABS: TSH w/ Reflex to FT4 2.49 uIU/mL (0.47-4.68)
== END ==
PROVIDERS: PCP Internal Medicine; Referring Provider Internal Medicine; Visit Provider Internal Medicine
DX: E66.9 Obesity, unspecified (principal); I48.0 Paroxysmal atrial fibrillation; J45.909 Unspecified asthma, uncomplicated; R73.9 Hyperglycemia, unspecified; Z79.01 Long term (current) use of anticoagulants; Z12.5 Encounter for screening for malignant neoplasm of prostate
CPT/HCPCS: 36415; 80053; 80061; 83036; 84443; 85025; G0103

== ENCOUNTER → 2021-02-25 08:55 | Outpatient (CLI) | payer OTHER, SELFPAY | PROVIDERS: PCP Internal Medicine; Referring Provider Internal Medicine; Visit Provider Internal Medicine | DX: Z23 Encounter for immunization (principal) | CPT/HCPCS: 90471; 90686 ==

== ENCOUNTER → 2021-04-02 13:47 | Outpatient (CLI) | payer OTHER, SELFPAY ==
[2021-04-02] MEDS: COVID-19 VACC #3, MRNA(MOD) 50 MCG/0.25 ML VIAL IM (13:53)
== END ==
PROVIDERS: PCP Internal Medicine; Visit Provider Internal Medicine
DX: Z23 Encounter for immunization (principal)
CPT/HCPCS: 0013A; 91301

== ENCOUNTER → 2021-04-05 07:24 | Outpatient (CLI) | payer OTHER, SELFPAY ==
[2021-04-05 07:56] LABS: Hemoglobin A1C% w Est Avg Glu 6.8 % (4.0-6.0)
[2021-04-05 08:10] LABS: BUN Creatinine Ratio 14.7 (6-22); Blood Urea Nitrogen 17 mg/dL (9-20); Calcium 9.3 mg/dL (8.4-10.2); Carbon Dioxide 25 mmol/L (22-32); Chloride 106 mmol/L (98-107); Estimated Glomerular Filt Rate > 60.0 mL/min (>60); Glucose 138 mg/dL (80-110); HEMOLYSIS < 15 (0-50); Potassium 4.5 mmol/L (3.4-5.1); Sodium 139 mmol/L (137-145)
[2021-04-05 09:22] LABS: Creatinine Urine Random 41.9 mg/dL
[2021-04-05 09:27] LABS: Microalbumin Urine Random < 0.6 mg/dL (0-1.6)
== END ==
PROVIDERS: PCP Internal Medicine; Referring Provider Internal Medicine; Visit Provider Internal Medicine
DX: E66.9 Obesity, unspecified (principal); E11.65 Type 2 diabetes mellitus with hyperglycemia
CPT/HCPCS: 36415; 80048; 82043; 82570; 83036

== ENCOUNTER → 2021-04-30 14:40 | Outpatient (CLI) | payer OTHER, SELFPAY ==
[2021-04-30 15:12] LABS: COVID19 -Nasal RAPID Negative (Negative)
== END ==
PROVIDERS: PCP Internal Medicine; Visit Provider Physician Assistant
DX: Z20.822 Contact with and (suspected) exposure to COVID-19 (principal)
CPT/HCPCS: 87635

== ENCOUNTER → 2021-05-06 08:04 | Outpatient (CLI) | payer OTHER, SELFPAY ==
[2021-05-06 08:40] LABS: COVID19 -Nasal RAPID Negative (Negative)
== END ==
PROVIDERS: PCP Internal Medicine; Visit Provider Physician Assistant
DX: Z20.822 Contact with and (suspected) exposure to COVID-19 (principal)
CPT/HCPCS: 87635

== ENCOUNTER → 2021-07-29 07:43 | Outpatient (CLI) | payer MEDICARE, OTHER, SELFPAY ==
[2021-07-29 09:19] LABS: BUN Creatinine Ratio 15.1 (6-22); Blood Urea Nitrogen 19 mg/dL (9-20); Calcium 9.8 mg/dL (8.4-10.2); Carbon Dioxide 30 mmol/L (22-32); Chloride 105 mmol/L (98-107); Estimated Glomerular Filt Rate 57.4 mL/min (>60); Glucose 148 mg/dL (80-110); HEMOLYSIS < 15 (0-50); Sodium 141 mmol/L (137-145)
[2021-07-29 09:22] LABS: Hemoglobin A1C% w Est Avg Glu 7.4 % (4.0-6.0)
[2021-07-29 09:49] LABS: Prostate Specific Antigen 1.52 ng/mL (0.10-4.00)
== END ==
PROVIDERS: PCP Internal Medicine; Referring Provider Internal Medicine; Visit Provider Internal Medicine
DX: E11.9 Type 2 diabetes mellitus without complications (principal); I48.0 Paroxysmal atrial fibrillation; R97.20 Elevated prostate specific antigen [PSA]
CPT/HCPCS: 36415; 80048; 83036; 84153

== ENCOUNTER → 2022-02-11 07:20 | Outpatient (CLI) | payer MEDICARE, OTHER, SELFPAY ==
[2022-02-11 08:47] LABS: Hemoglobin A1C% w Est Avg Glu 6.1 % (4.0-6.0)
[2022-02-11 09:09] LABS: Alanine Aminotransferase 23 IU/L (<50); Albumin 4.3 g/dL (3.5-5.0); Albumin Globulin Ratio 1.6 (1.0-2.8); Alkaline Phosphatase 51 U/L (38-126); Aspartate Aminotransferase 22 IU/L (17-59); BUN Creatinine Ratio 14.7 (6-22); Bilirubin Total 0.5 mg/dL (0.2-1.3); Blood Urea Nitrogen 17 mg/dL (9-20); Calcium 9.2 mg/dL (8.4-10.2); Carbon Dioxide 28 mmol/L (22-32); Chloride 104 mmol/L (98-107); Cholesterol 88 mg/dL (140-199); Estimated Glomerular Filt Rate > 60 mL/min (>60); Globulin 2.7 g/dL (1.7-4.1); Glucose 120 mg/dL (80-110); HDL Cholesterol 39 mg/dL (40-60); HEMOLYSIS < 15 (0-50); LDL Cholesterol Calculated 38 mg/dL (<100); Potassium 4.8 mmol/L (3.4-5.1); Sodium 141 mmol/L (137-145); Triglycerides 57 mg/dL (35-150)
[2022-02-11 09:20] LABS: Microalbumin Urine Random 0.8 mg/dL (0-1.6)
[2022-02-11 09:21] LABS: Creatinine Urine Random 147.8 mg/dL; Microalbumi Creatinin Ratio Ur 5.4 ug/mg CR (<30)
== END ==
PROVIDERS: PCP Internal Medicine; Referring Provider Internal Medicine; Visit Provider Internal Medicine
DX: E11.9 Type 2 diabetes mellitus without complications (principal)
CPT/HCPCS: 36415; 80053; 80061; 82043; 82570; 83036

== ENCOUNTER → 2022-02-17 11:58 | Outpatient (CLI) | payer MEDICARE, OTHER, SELFPAY ==
[2022-02-17 15:53] LABS: Prostate Specific Antigen 1.58 ng/mL (0.10-4.00)
== END ==
PROVIDERS: PCP Internal Medicine; Referring Provider Internal Medicine; Visit Provider Internal Medicine
DX: C61 Malignant neoplasm of prostate (principal)
CPT/HCPCS: 36415; 84153

== ENCOUNTER → 2022-02-17 15:28 | Outpatient (CLI) | payer MEDICARE, OTHER, SELFPAY | PROVIDERS: PCP Internal Medicine; Referring Provider Internal Medicine; Visit Provider Internal Medicine | DX: Z23 Encounter for immunization (principal) | CPT/HCPCS: 90471; 90686 ==

== ENCOUNTER → 2022-06-14 07:18 | Outpatient (CLI) | payer MEDICARE, OTHER, SELFPAY ==
[2022-06-14 08:47] LABS: Prostate Specific Antigen 1.58 ng/mL (0.10-4.00)
== END ==
PROVIDERS: PCP Internal Medicine; Referring Provider Internal Medicine; Visit Provider Internal Medicine
DX: C61 Malignant neoplasm of prostate (principal)
CPT/HCPCS: 36415; 84153

== ENCOUNTER → 2022-08-03 10:46 | Outpatient (CLI) | payer MEDICARE, OTHER, SELFPAY ==
[2022-08-05 18:05] LABS: Fecal Immunochemical Test Negative (Negative)
== END ==
PROVIDERS: PCP Internal Medicine; Referring Provider Internal Medicine; Visit Provider Internal Medicine
DX: Z12.11 Encounter for screening for malignant neoplasm of colon (principal)
CPT/HCPCS: 82274

== ENCOUNTER → 2022-08-05 07:10 | Outpatient (CLI) | payer MEDICARE, OTHER, SELFPAY ==
[2022-08-05 07:48] LABS: Hemoglobin A1C% w Est Avg Glu 6.2 % (4.0-6.0)
== END ==
PROVIDERS: PCP Internal Medicine; Referring Provider Internal Medicine; Visit Provider Internal Medicine
DX: E11.9 Type 2 diabetes mellitus without complications (principal)
CPT/HCPCS: 36415; 83036

== ENCOUNTER → 2023-03-17 07:06 | Outpatient (CLI) | payer MEDICARE, OTHER, SELFPAY ==
[2023-03-17 08:16] LABS: Hemoglobin A1C% w Est Avg Glu 6.9 % (4.0-6.0)
[2023-03-17 08:45] LABS: Creatinine Urine Random 97.8 mg/dL
[2023-03-17 08:48] LABS: Microalbumi Creatinin Ratio Ur 9.2 ug/mg CR (<30); Microalbumin Urine Random 0.9 mg/dL (0-1.6)
[2023-03-17 08:50] LABS: Alanine Aminotransferase 30 IU/L (<50); Albumin Globulin Ratio 1.5 (1.0-2.8); Alkaline Phosphatase 56 U/L (38-126); Aspartate Aminotransferase 23 IU/L (17-59); BUN Creatinine Ratio 18.1 (6-22); Bilirubin Total 0.3 mg/dL (0.2-1.3); Blood Urea Nitrogen 21 mg/dL (9-20); Calcium 9.7 mg/dL (8.4-10.2); Carbon Dioxide 27 mmol/L (22-32); Chloride 104 mmol/L (98-107); Cholesterol 88 mg/dL (140-199); Estimated Glomerular Filt Rate > 60 mL/min (>60); Globulin 2.6 g/dL (1.7-4.1); Glucose 136 mg/dL (80-110); HDL Cholesterol 37 mg/dL (40-60); HEMOLYSIS < 15 (0-50); LDL Cholesterol Calculated 36 mg/dL (<100); Sodium 139 mmol/L (137-145); Total Protein 6.6 g/dL (6.3-8.2); Triglycerides 74 mg/dL (35-150)
[2023-03-17 09:14] LABS: Thyroid Stimulating Hormone 2.29 uIU/mL (0.47-4.68)
[2023-03-17 09:15] LABS: Prostate Specific Antigen 2.68 ng/mL (0.10-4.00)
== END ==
PROVIDERS: PCP Internal Medicine; Referring Provider Internal Medicine Cardiovascular Disease; Visit Provider Internal Medicine Cardiovascular Disease
DX: Z79.899 Other long term (current) drug therapy (principal); E78.5 Hyperlipidemia, unspecified; C61 Malignant neoplasm of prostate; E11.9 Type 2 diabetes mellitus without complications
CPT/HCPCS: 36415; 80053; 80061; 82043; 82570; 83036; 84153; 84443

== ENCOUNTER → 2023-04-07 09:45 | Outpatient (CLI) | payer MEDICARE, OTHER, SELFPAY | PROVIDERS: PCP Internal Medicine; Referring Provider Internal Medicine; Visit Provider Internal Medicine | DX: R06.02 Shortness of breath (principal); J98.8 Other specified respiratory disorders | CPT/HCPCS: 94060; 94726; 94729 ==

== ENCOUNTER → 2023-04-10 14:44 | Outpatient (CLI) | payer MEDICARE, OTHER, SELFPAY | PROVIDERS: PCP Internal Medicine; Referring Provider Family Medicine; Visit Provider Family Medicine | DX: Z23 Encounter for immunization (principal) | CPT/HCPCS: 90471; 90686 ==

== ENCOUNTER → 2023-06-13 07:36 | Outpatient (CLI) | payer MEDICARE, OTHER, SELFPAY ==
[2023-06-13 10:52] LABS: Prostate Specific Antigen 1.69 ng/mL (0.10-4.00)
== END ==
PROVIDERS: PCP Internal Medicine; Referring Provider Psychiatry & Neurology Psychiatry; Visit Provider Psychiatry & Neurology Psychiatry
DX: C61 Malignant neoplasm of prostate (principal)
CPT/HCPCS: 36415; 84153

== ENCOUNTER → 2023-11-10 07:03 | Outpatient (CLI) | payer MEDICARE, OTHER, SELFPAY ==
[2023-11-10 09:27] LABS: Alanine Aminotransferase 29 IU/L (<50); Albumin 3.9 g/dL (3.5-5.0); Albumin Globulin Ratio 1.5 (1.0-2.8); Alkaline Phosphatase 62 U/L (38-126); Aspartate Aminotransferase 23 IU/L (17-59); BUN Creatinine Ratio 16.7 (6-22); Bilirubin Total 0.6 mg/dL (0.2-1.3); Blood Urea Nitrogen 19 mg/dL (9-20); Calcium 9.4 mg/dL (8.4-10.2); Carbon Dioxide 28 mmol/L (22-32); Chloride 106 mmol/L (98-107); Cholesterol 94 mg/dL (140-199); Estimated Glomerular Filt Rate > 60 mL/min (>60); Globulin 2.6 g/dL (1.7-4.1); Glucose 175 mg/dL (80-110); HDL Cholesterol 39 mg/dL (40-60); HEMOLYSIS < 15 (0-50); Hemoglobin A1C% w Est Avg Glu 7.8 % (4.0-6.0); LDL Cholesterol Calculated 34 mg/dL (<100); Potassium 4.8 mmol/L (3.4-5.1); Sodium 138 mmol/L (137-145); Total Protein 6.5 g/dL (6.3-8.2); Triglycerides 105 mg/dL (35-150)
== END ==
PROVIDERS: PCP Internal Medicine; Referring Provider Internal Medicine; Visit Provider Internal Medicine
DX: E11.9 Type 2 diabetes mellitus without complications (principal); E78.2 Mixed hyperlipidemia
CPT/HCPCS: 36415; 80053; 80061; 83036

== ENCOUNTER → 2024-01-26 07:54 | Outpatient (CLI) | payer MEDICARE, OTHER, SELFPAY ==
[2024-01-26 09:20] LABS: Thyroid Stimulating Hormone 2.32 uIU/mL (0.47-4.68)
[2024-01-26 10:58] LABS: Hemoglobin A1C% w Est Avg Glu 7.4 % (4.0-6.0)
[2024-01-26 11:14] LABS: HEMOLYSIS < 15 (0-50); Prostate Specific Antigen 0.813 ng/mL (0.10-4.00)
[2024-01-26 16:17] LABS: Alanine Aminotransferase 34 IU/L (<50); Albumin 4.2 g/dL (3.5-5.0); Albumin Globulin Ratio 1.8 (1.0-2.8); Alkaline Phosphatase 58 U/L (38-126); Aspartate Aminotransferase 29 IU/L (17-59); Bilirubin Total 0.6 mg/dL (0.2-1.3); Blood Urea Nitrogen 17 mg/dL (9-20); Calcium 9.5 mg/dL (8.4-10.2); Carbon Dioxide 24 mmol/L (22-32); Chloride 106 mmol/L (98-107); Cholesterol 109 mg/dL (140-199); Estimated Glomerular Filt Rate > 60 mL/min (>60); Globulin 2.4 g/dL (1.7-4.1); Glucose 171 mg/dL (80-110); HDL Cholesterol 42 mg/dL (40-60); LDL Cholesterol Calculated 47 mg/dL (<100); Potassium 4.7 mmol/L (3.4-5.1); Sodium 139 mmol/L (137-145); Total Protein 6.6 g/dL (6.3-8.2); Triglycerides 98 mg/dL (35-150)
== END ==
PROVIDERS: Psychiatry & Neurology Psychiatry; PCP Internal Medicine; Referring Provider Radiology Radiation Oncology; Visit Provider Radiology Radiation Oncology
DX: E78.5 Hyperlipidemia, unspecified (principal); C61 Malignant neoplasm of prostate; I48.0 Paroxysmal atrial fibrillation; E11.9 Type 2 diabetes mellitus without complications; Z79.899 Other long term (current) drug therapy
CPT/HCPCS: 36415; 80053; 80061; 83036; 84153; 84443

== ENCOUNTER → 2024-03-18 17:31 | Outpatient (ROUT) | payer MEDICARE, OTHER, SELFPAY ==
[2024-03-20 17:08] LABS: Fecal Immunochemical Test Negative (Negative)
== END ==
PROVIDERS: PCP Internal Medicine; Visit Provider Internal Medicine
DX: Z12.11 Encounter for screening for malignant neoplasm of colon (principal)
CPT/HCPCS: 82274

== ENCOUNTER → 2024-04-25 08:27 | Outpatient (CLI) | payer MEDICARE, OTHER, SELFPAY ==
[2024-04-25 09:55] LABS: BUN Creatinine Ratio 16.8 (6-22); Blood Urea Nitrogen 19 mg/dL (9-20); Calcium 9.9 mg/dL (8.4-10.2); Carbon Dioxide 26 mmol/L (22-32); Chloride 105 mmol/L (98-107); Estimated Glomerular Filt Rate > 60 mL/min (>60); Glucose 189 mg/dL (80-110); HEMOLYSIS < 15 (0-50); Sodium 139 mmol/L (137-145)
[2024-04-25 10:22] LABS: Prostate Specific Antigen 0.525 ng/mL (0.10-4.00)
[2024-04-25 10:48] LABS: Creatinine Urine Random 58.49 mg/dL
[2024-04-25 10:52] LABS: Microalbumin Urine Random 7.5 mg/dL (0-1.6)
[2024-04-25 18:33] LABS: Hemoglobin A1C% w Est Avg Glu 7.8 % (4.0-6.0)
== END ==
PROVIDERS: PCP Internal Medicine; Referring Provider Urology; Visit Provider Urology
DX: E11.9 Type 2 diabetes mellitus without complications (principal); C61 Malignant neoplasm of prostate; E78.2 Mixed hyperlipidemia
CPT/HCPCS: 80048; 82043; 82570; 83036; 84153

== ENCOUNTER → 2024-04-28 16:06 | Outpatient (CLI) | payer MEDICARE, OTHER, SELFPAY ==
--- NOTE | 2024-04-28 16:09 | DI.RAD.S_ITS ---
PROCEDURE: XR CHEST 2V INDICATIONS: Cough and wheezing TECHNIQUE: 2 views of the chest were acquired. COMPARISON: None. FINDINGS: Surgical changes and devices: None. Lungs and pleura: Lungs are clear. No pleural effusions or pneumothorax. Mediastinum: Mediastinal contours are normal. Heart size is normal. Bones and chest wall: No suspicious bony abnormalities. Soft tissues appear unremarkable. IMPRESSION: No acute cardiopulmonary abnormality is seen. Approved by: Eric Jacobson M.D. on 04/28/2024 at 15:35
== END ==
LOC: RAD 16:08
PROVIDERS: PCP Internal Medicine; Referring Provider Registered Nurse; Visit Provider Registered Nurse
DX: R06.2 Wheezing (principal)
CPT/HCPCS: 71046

== ENCOUNTER → 2024-05-24 13:52 | Outpatient (CLI) | payer MEDICARE, OTHER, SELFPAY ==
--- NOTE | 2024-05-24 13:57 | DIAB.MNT ---
Initial Diabetes Medical Nutrition Therapy Assessment Name: Jamie Barros Date: 05/24/23 Time: 2-310p Dx: Type II Diabetes Provider: Jesus Preferred Learning Style: Listening, Watching, Reading, Doing Jamie presents for initial DM visit. Reports Dm diagnosis about 2 years ago. Prior had h/o PDM. Paternal grandmother FH of T2DM. No previous DM ed. Schedule conflicts for DM classes. Interested in CGM. May benefit from OTC CGM. Provided sample CGm today, after warm up showed a BG of 306mg/dl after grapenuts, banana, honey, almond milk. Endorses excessive thirst and urination and fatigue. Reports his main concern is diet. States he loves carbs and has a hard time limiting them. Has tried premade meal plans and lost wt, but felt this was unsustainable. Reports he has brought his hgA1c down with a wt of 195#. Endorses chocolate cravings in the afternoon. Diet Recall: 5a: coffee black 7a: fruit, greens, nut butter smoothie, latte 12p: sandwich with 3oz chips OR hot lunch OR leftovers 3p: 3-4 fun size candy chocolate 6p: protien, veg, 1-1.5c CHO, 8oz milk 7p: 1.25c ice cream 2L water Anthropometrics: Ht: 69 Wt: 205# reported Weight history: 213.5# 02/2024 Physical Activity: Walking, gym, resistance training, 3 days per week Self-Monitoring Blood Glucose: None. Req meter and supplies. 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 Provided appropriate educational handouts. Discussed the following topics: Completed intake assessment. Discussed barriers to care. Pathophysiology of T2DM in brief, ie beta cell and hypo v hyper HgA1c, its correlation to blood glucose numbers, and goal Importance of self-monitoring, having meter, potential for OTC CGM and resources CGM Sample Reviewed CGM use and equipment Discussed when to check blood sugars using finger stick Reviewed high and low blood sugar signs/symptoms and treatment options Provided education for self-administration of CGM placement Educated patient on alarm settings Discussed how to remove and dispose of equipment Plate Method, impact of macronutrients on blood sugar, meal timing, carbohydrate counting, pairing macronutrients and spreading out carbohydrates for better blood glucose management Recommended servings for carbohydrates at meals and snacks Brainstormed appropriate meal/snack ideas based on food preferences Role of physical activity and following provider guidelines for safety Created SMART goals for patient self-care and success. Goals: Add protein to 3p snack Aim for 45g CHO at meals or less- new Wear CGM x 10.5 days Follow-up: [facility] follow-up in 3-4 weeks. Seems likely that Jamie will need an increase in Metformin to 1000mg BID. If diet changes cannot make significant change in BG results, may need to consider additional medication. Roseanna Segovia, REX, CRISTALES Certified Diabetes Care and Theater Set Production Designer P: [phone] Thank you for this referral
== END ==
PROVIDERS: PCP Internal Medicine; Referring Provider Internal Medicine
DX: E11.9 Type 2 diabetes mellitus without complications (principal); Z83.3 Family history of diabetes mellitus; Z79.4 Long term (current) use of insulin; Z71.3 Dietary counseling and surveillance
CPT/HCPCS: 97802

== ENCOUNTER → 2024-06-21 14:38 | Outpatient (CLI) | payer MEDICARE, OTHER, SELFPAY ==
--- NOTE | 2024-06-21 14:42 | DIAB.MNTFU ---
Addendum entered by Roseanna Segovia 06/21/24 17:02: Time of appt was 250-330p Original Note: Follow-up Diabetes Medical Nutrition Therapy Assessment Name: Jamie Barros Date: 06/21/24 Time: 3-330p Dx: Type II Diabetes Provider: Jesus Ayala presents for follow-up DM visit. Reports Dm diagnosis about 2 years ago. Paternal grandmother FH of T2DM. No previous DM ed. Schedule conflicts for DM classes. Purchased Dexcom OTC option and BG have improved. Endorses reduced CHo intake. States he has been more aware of choices. Trying to add more protein to meals/snacks Working on smaller portions. Endorses difficulty with this lifelong. family of 8 growing up with mostly casseroles, higher CHO and encouraged to finish food. Using food tracking nydia. Reduced CHO by cutting out milk in coffee. Questions regarding how to bring down FBG and read food labels Anthropometrics: Ht: 69 Wt: 205# reported Weight history: 213.5# 02/2024 Physical Activity: Walking, gym, resistance training, 3 days per week. Less recently. Self-Monitoring Blood Glucose: Wore CGM Sample, and now using OTC option. Time in range at goal >70%. Wakes with FBG >130mg/dl and BG often in the 200s after lunch and dinner even after moderate CHO intake. TIR: 2% very high 16% high 81% in range 1% low 0% very low avmg/dl GMI: 6.9% std dev: 41mg/dl variance: 27.4% Diabetes Medications: 1000mg Metformin BID Pertinent Labs: HgA1c: 7.4% 01/2024 7.8% 04/2024 Past Medical History: (Last Reviewed 04/28/24 @ 15:48 by GARRETT Urias) Asthma (~1993) BPH w urinary obs/LUTS Colon polyps (~2015) Diabetes type 2, controlled (~10/2020) Erectile dysfunction GERD (gastroesophageal reflux disease) (~1999) Hearing loss (~2007) High frequency hearing loss History of prostate cancer History of radiation therapy Hx of seasonal allergies 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 tract symptoms 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 associated 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 CPAP recall 11/02/20 Mixed hyperlipidemia Obesity (BMI 30-39.9) Obstructive sleep apnea Paroxysmal atrial fibrillation (~2013) Periodic limb movement disorder (PLMD) Prostate cancer (~2007) Seasonal allergies (~1993) Shoulder pain (~2007) Tinnitus (~2004) Vision disorder Glasses Nutrition Rx: Carbohydrates: Meal:45g Snack:15-30g Nutrition Diagnosis: - Excessive CHO intake r/t nutrition knowledge deficit aeb diet recall and pt report- improved/in progress - Self monitoring deficit r/t no SMBG supplies or CGM aeb pt report - improved - Nutrition knowledge deficit r/t no previous label reading education aeb pt report- new Intervention: This participant was very receptive. Provided appropriate educational handouts. Discussed the following topics: FBG and gluconeogenesis (increasing activity v medication options-- maybe SGLT2i) Impact of activity on BG Multiple etiologies for managing hunger/fullness and portions label reading for net carbs Hydration Meal timing Variances in BG checks and CGM How CGM measure glucose Created SMART goals for patient self-care and success. Goals: Add protein to 3p snack- met Aim for 45g CHO at meals or less- met Wear CGM x 10.5 days- met Try activity after a meal- new Try salad with tuna for lunch- new Eat q 3-4 hours to help manage portions- new Follow-up: [facility] follow-up in 3-4 weeks. will continue with diet changes and tracking BG. If numbers do not continue to improve may need to consider additional DM med. Roseanna Segovia RDN, CDCES Certified Diabetes Care and Information Technology Account Manager P: [phone] Thank you for this referral
== END ==
LOC: DIET 14:39
PROVIDERS: PCP Internal Medicine; Referring Provider Internal Medicine
DX: E11.9 Type 2 diabetes mellitus without complications (principal); Z83.3 Family history of diabetes mellitus; Z71.3 Dietary counseling and surveillance; Z79.84 Long term (current) use of oral hypoglycemic drugs
CPT/HCPCS: 97803

== ENCOUNTER → 2024-06-29 08:06 | Outpatient (CLI) | payer MEDICARE, OTHER, SELFPAY ==
[2024-06-29 09:50] LABS: Alanine Aminotransferase 30 IU/L (<50); Albumin 4.4 g/dL (3.5-5.0); Albumin Globulin Ratio 1.8 (1.0-2.8); Alkaline Phosphatase 54 U/L (38-126); Aspartate Aminotransferase 26 IU/L (17-59); BUN Creatinine Ratio 19.6 (6-22); Bilirubin Total 0.4 mg/dL (0.2-1.3); Blood Urea Nitrogen 20 mg/dL (9-20); Calcium 9.6 mg/dL (8.4-10.2); Carbon Dioxide 26 mmol/L (22-32); Chloride 106 mmol/L (98-107); Estimated Glomerular Filt Rate > 60 mL/min (>60); Globulin 2.4 g/dL (1.7-4.1); Glucose 163 mg/dL (80-110); HEMOLYSIS < 15 (0-50); Potassium 4.9 mmol/L (3.4-5.1); Sodium 139 mmol/L (137-145); Total Protein 6.8 g/dL (6.3-8.2)
[2024-06-29 10:19] LABS: Thyroid Stimulating Hormone 1.32 uIU/mL (0.47-4.68)
[2024-06-29 10:19] LABS: Prostate Specific Antigen 0.465 ng/mL (0.10-4.00)
== END ==
PROVIDERS: Internal Medicine Cardiovascular Disease; PCP Internal Medicine; Referring Provider Radiology Radiation Oncology; Visit Provider Radiology Radiation Oncology
DX: C61 Malignant neoplasm of prostate (principal); I48.0 Paroxysmal atrial fibrillation
CPT/HCPCS: 36415; 80053; 84153; 84443

== ENCOUNTER → 2024-07-17 16:47 | Outpatient (CLI) | payer MEDICARE, OTHER, SELFPAY ==
[2024-07-17 17:14] LABS: Appearance Urine UA CLEAR; Bilirubin Urine UA NEGATIVE (NEGATIVE); Color Urine UA YELLOW; Glucose Urine UA TRACE g/dL (Negative); Ketones Urine UA NEGATIVE (NEGATIVE); Leukocyte Esterase Urine UA NEGATIVE (NEGATIVE); Nitrite Urine UA NEGATIVE (Negative); Occult Blood Urine UA 3+ (Negative); Protein Urine UA NEGATIVE (Negative); Urobilinogen Urine UA 0.2 E.U./dL (0.2); pH Urine UA 5.5 (4.5-8.0)
[2024-07-17 17:20] LABS: Bacteria Urine None Seen; Culture Indicated Urine Cult Not Indicated; RBC Urine 10-30/HPF (0-5/HPF); Squamous Epithelial Cell Urine None Seen (0-5/HPF); Urine Volume 10mL (spun); WBC Urine None Seen (0-5/HPF)
== END ==
LOC: LAB 16:48
PROVIDERS: PCP Internal Medicine; Referring Provider Urology; Visit Provider Urology
DX: R31.0 Gross hematuria (principal)
CPT/HCPCS: 81001

== ENCOUNTER → 2024-07-26 06:48 | Outpatient (CLI) | payer MEDICARE, OTHER, SELFPAY ==
--- NOTE | 2024-07-26 06:49 | DI.CT.S_ITS ---
PROCEDURE: CT IVP A/P W/WO INDICATIONS: GROSS HEMATURIA/HX OF XRT TECHNIQUE: Optional 5 mm thick noncontrast images acquired from the diaphragm to the symphysis pubis. After the administration of intravenous contrast, 5 mm thick images acquired from the diaphragm to the symphysis pubis after a 10-minute delay. 2 mm thick coronal and sagittal reformats were then performed of the kidneys and ureters. For radiation dose reduction, the following was used: automated exposure control, adjustment of mA and/or kV according to patient size. COMPARISON: None. FINDINGS: Image quality: Diagnostic. Kidneys and Ureters: Both kidneys are normal in size, without hydronephrosis or nephrolithiasis. No perinephric fat stranding. There is normal bilateral renal enhancement. Renal calyces appear normal in morphology when filled with contrast. Opacified portions of both ureters demonstrate normal caliber Bladder: Bladder is incompletely distended. Very minimal pericystic stranding is present. OTHER: Lower chest: Unremarkable. Liver: No solid mass. Gallbladder: No radiopaque gallstones or wall thickening. Biliary ducts: No biliary dilation. Pancreas: No ductal dilation. Spleen: Size is within normal limits. Adrenal Glands: No adrenal nodules. Stomach and Bowel: Normal colonic caliber, without significant wall thickening. Peritoneum: No abnormal intraperitoneal fluid. No free air. Ventral Wall: No hernia. Abdominal Nodes: No retroperitoneal or mesenteric adenopathy by size criteria. Vessels: Aorta and inferior vena cava are normal in size. PELVIS: Pelvic Organs: Unremarkable. Pelvic Nodes: No enlarged lymph nodes. Miscellaneous: Bilateral fat containing inguinal hernias are seen. Bones: No aggressive osseous abnormality. IMPRESSION: No nephrolithiasis or filling defects within the opacified renal collecting system or ureters. Incomplete bladder distention. Minimal appearance of pericystic stranding. This could be related to infection or inflammation if appropriate. Is overall nonspecific. Dictated by: Lala Redding M.D. on 07/26/2024 at 11:33 Approved by: Lala Redding M.D. on 07/26/2024 at 11:37
== END ==
PROVIDERS: PCP Internal Medicine; Referring Provider Urology; Visit Provider Urology
DX: C61 Malignant neoplasm of prostate (principal); R31.0 Gross hematuria; N32.89 Other specified disorders of bladder; K40.20 Bilateral inguinal hernia, without obstruction or gangrene, not specified as recurrent; Z92.3 Personal history of irradiation
CPT/HCPCS: 74178; Q9967

== ENCOUNTER → 2024-08-02 13:46 | Outpatient (CLI) | payer MEDICARE, OTHER, SELFPAY ==
--- NOTE | 2024-08-02 13:55 | DIAB.MNTFU ---
Follow-up Diabetes Medical Nutrition Therapy Assessment Name: Jamie Barros Date: 08/02/24 Time: 2230 Dx: Type II Diabetes Jamie presents for follow-up DM visit. Reports Dm diagnosis about 2 years ago. Reports mostly low CHO and higher protein diet, which renders better BG. States if he eats any carbs, even small portions, his BG goes above 200mg/dl. This is evident by CGM reports. Eating more frequently with protein snacks, ie shakes, bars, cheese. Does wait a few hours in the morning before eating and notices increasing BG. Has increased exercise. Avoiding most sweets, gave up chocolate for lent. Considering the idea of secondary DM medication since he has to be so strict with diet to render healthy BG. Anthropometrics: Ht: 69 Wt: 205# reported 05/2024 Weight history: 213.5# 02/2024 Physical Activity: Resistance training, wanting to add cardio. Self-Monitoring Blood Glucose: Wearing personal CGM. Good time in range. Improvement with time >250mg/dl and std deviation. TIR: 1% very high 16% high 83% in range 0% low 0% very low avmg/dl GMI: 6.9% std dev: 35mg/dl variance: 23.3% Last TIR: 2% very high 16% high 81% in range 1% low 0% very low avmg/dl GMI: 6.9% std dev: 41mg/dl variance: 27.4% Last TIR: 1% very high 16% high 83% in range 0% low 0% very low avmg/dl GMI: 6.9% std dev: 35mg/dl variance: 23.3% Diabetes Medications: 1000mg Metformin BID Pertinent Labs: HgA1c: 7.4% 01/2024 7.8% 04/2024 Past Medical History: (Last Reviewed 04/28/24 @ 15:48 by GARRETT Urias) Asthma (~1993) BPH w urinary obs/LUTS Colon polyps (~2015) Diabetes type 2, controlled (~10/2020) Erectile dysfunction GERD (gastroesophageal reflux disease) (~1999) Hearing loss (~2007) High frequency hearing loss History of prostate cancer History of radiation therapy Hx of seasonal allergies 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 tract 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 Provided appropriate educational handouts. Discussed the following topics: FBG and gluconeogenesis very low carb diets and cholesterol Physical activity DM medications Meal timing in the morning Created SMART goals for patient self-care and success. Goals: Try activity after a meal- d/c Try salad with tuna for lunch- met Eat q 3-4 hours to help manage portions- improved Try protein shake in the morning within one hour of waking- new Make PCP appt- new Follow-up: [facility] follow-up req after next PCP visit. Will call to schedule. RD will message provider med discussion we had today. Roseanna Segovia RDN, JOSEPH Certified Diabetes Care and Geophysical Data Technician P: [phone] Thank you for this referral
== END ==
PROVIDERS: PCP Internal Medicine; Referring Provider Internal Medicine
DX: E11.9 Type 2 diabetes mellitus without complications (principal); Z71.3 Dietary counseling and surveillance; Z79.84 Long term (current) use of oral hypoglycemic drugs
CPT/HCPCS: 97803

== ENCOUNTER → 2024-08-09 06:53 | Outpatient (CLI) | payer MEDICARE, OTHER, SELFPAY ==
--- NOTE | 2024-08-09 06:54 | DI.ECHO.S_ITS ---
[facility]+ [facility] : : [address] : [place] : : [id number] : : Phone: [phone] Echocardiogram Report + + :Name: EVA AMES Study Date: 08/09/2024 Height: 69 in : :Hospital ReadingLocation: Weight: 200 lb : : Gender: Male BSA: 2.1 m2 : :: 1955 Age: 69 yrs BP: 119/79 mmHg: :Reason For Study: Atrial Fibrillation : :Ordering Physician: LAZARO, : :ETHAN Bear Performed By: Valeria Leger : :Referring: ETHAN WILLIS W : + + Interpretation Summary The left ventricle is normal in size and wall thickness. The left ventricular ejection fraction is normal. The ejection fraction is estimated to be 55-60%. The right ventricle is normal in size and function. There is mild mitral regurgitation. There is mild tricuspid regurgitation. The right ventricular systolic pressure is estimated to be at least 25 mmHg based on an estimated right atrial pressure of 3 mm Hg. Overall no significant valvular pathology seen. Procedure: A two-dimensional transthoracic echocardiogram with color flow and Doppler was performed. The study quality was technically good. The patient had an echocardiogram, but there is no comparison study available. The patient was in sinus rhythm with heart rates between 62-80 bpm during the exam. Left Ventricle: The left ventricle is normal in size and wall thickness. A false chord is noted (normal variant). There is no thrombus. The ejection fraction is estimated to be 55-60%. The left ventricular ejection fraction is normal. There are no focal wall motion abnormalities. MV E/A: 1.1 Med Peak E' Adam: 8.6 cm/sec E/E' med: 9.2. No significant diastolic dysfunction. Right Ventricle: The right ventricle is normal in size and function. Atria: Both atria are normal in size. There is no Doppler evidence for an interatrial shunt. Lipomatous hypertrophy of the interatrial septum is noted. Mitral Valve: There is mild mitral annular calcification. The mitral valve leaflets appear borderline thickened, but open well. There is mild mitral regurgitation. Aortic Valve: The aortic valve is trileaflet. The aortic valve opens well. There is no aortic valve stenosis. No aortic regurgitation is present. Tricuspid Valve: The tricuspid valve leaflets are thin and pliable. The right ventricular systolic pressure is estimated to be at least 25 mmHg based on an estimated right atrial pressure of 3 mm Hg. There is mild tricuspid regurgitation. Pulmonic Valve: The pulmonic valve is not well seen, but is grossly normal. There is a trace or physiologic amount of pulmonic regurgitation. Great Vessels: The aortic root is normal size. The ascending aorta is at the upper limits of normal in size. The aortic arch is normal in size. The pulmonary artery is normal size. The IVC is of normal diameter and collapses greater than 50% with a sniff. This suggests a low right atrial pressure of 3 mm Hg. Pericardium/ Pleura There is no pericardial effusion. There is no pleural effusion. MMode/2D Measurements & Calculations LVIDd: 4.5 cm LVOT diam: 2.3 cm LVIDs: 2.9 cm Ao root diam: 3.2 cm FS: 35.7 % asc Aorta Diam: 3.8 cm EPSS: 0.79 cm Ao Arch Diam (Prox Trans): 1.9 cm IVSd: 0.81 cm LVPWd: 0.82 cm LV biswas. diameter/BSA (cm/m^2): 2.2 LV sys. diameter/BSA (cm/m^2): 1.4 LA A2 area: 17.9 cm2 RA long axis: 5.4 cm LA A4 area: 21.5 cm2 RA area: 11.8 cm2 LA length (vol): 5.8 cm RA vol: 21.8 ml LA vol: 56.1 ml RA : 10.6 ml/m2 LA vol index: 27.2 ml/m2 IVC diam: 1.4 cm TAPSE: 2.3 cm Doppler Measurements & Calculations Ao V2 max: 139.6 cm/sec LVOT Max Adam: 115.6 cm/sec Ao V2 mean: 93.6 cm/sec LV V1 max P.3 mmHg Ao max P.8 mmHg LV V1 VTI: 23.7 cm Ao mean P.9 mmHg KHLOE(I,D): 3.6 cm2 Ao V2 VTI: 28.3 cm KHLOE(V,D): 3.5 cm2 sev ratio: 0.84 KHLOE indexed to BSA (cm^2/m^2): 1.7 MV E max adam: 78.4 cm/sec TR max adam: 229.5 cm/sec MV A max adam: 69.5 cm/sec TR max P.1 mmHg MV E/A: 1.1 PA V2 max: 73.2 cm/sec Med Peak E' Adam: 8.6 cm/sec PA V2 mean: 58.1 cm/sec E/E' med: 9.2 PA mean P.4 mmHg Lat Peak E' Adam: 11.9 cm/sec PA pr(Accel): 24.2 mmHg E/E' lat: 6.6 E/e' average: 7.9 MV dec time: 0.19 sec MVA(VTI): 3.6 cm2 MV V2 mean: 59.6 cm/sec SV(LVOT): 100.7 ml MV mean P.5 mmHg MV V2 VTI: 28.1 cm Reading Physician:01:03 PM
== END ==
PROVIDERS: PCP Internal Medicine; Referring Provider Nurse Practitioner; Visit Provider Nurse Practitioner
DX: I08.1 Rheumatic disorders of both mitral and tricuspid valves (principal); I48.0 Paroxysmal atrial fibrillation
CPT/HCPCS: 93306

== ENCOUNTER → 2024-08-16 14:19 | Outpatient (CLI) | payer MEDICARE, OTHER, SELFPAY ==
[2024-08-16 15:44] LABS: Hemoglobin A1C% w Est Avg Glu 6.6 % (4.0-6.0)
[2024-08-16 16:29] LABS: BUN Creatinine Ratio 16.7 (6-22); Blood Urea Nitrogen 21 mg/dL (9-20); Carbon Dioxide 26 mmol/L (22-32); Chloride 104 mmol/L (98-107); Estimated Glomerular Filt Rate > 60 mL/min (>60); HEMOLYSIS < 15 (0-50); Potassium 4.3 mmol/L (3.4-5.1); Sodium 140 mmol/L (137-145)
[2024-08-16 16:30] LABS: Calcium 9.6 mg/dL (8.4-10.2); Glucose 119 mg/dL (80-110)
== END ==
LOC: LAB 14:21
PROVIDERS: PCP Internal Medicine; Referring Provider Internal Medicine; Visit Provider Internal Medicine
DX: E11.9 Type 2 diabetes mellitus without complications (principal)
CPT/HCPCS: 36415; 80048; 83036

== ENCOUNTER 2024-11-03 15:54 | Emergency (ER) | payer MEDICARE, OTHER, SELFPAY ==
[2024-11-03] VITALS (29 sets, daily range): BP systolic 105–174; BP diastolic 58–85; PULSE 59–147; RESP 11–120; TEMP 36.5; O2SAT 94–98; BMI 29.5
--- NOTE | 2024-11-03 16:00 | EKG_ITS ---
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
--- NOTE | 2024-11-03 16:00 | DI.RAD.S_ITS ---
PROCEDURE: XR CHEST 1V INDICATIONS: Chest Pain TECHNIQUE: One view of the chest was acquired. COMPARISON: [facility], CR, XR CHEST 2V, 04/28/2024, 16:06. FINDINGS AND IMPRESSION: Low lung volumes. No airspace consolidation or pleural effusion on this single view study. Normal heart size. Degenerative osseous changes. Dictated by: Jose Rios M.D. on 11/03/2024 at 16:38 Approved by: Jose Rios M.D. on 11/03/2024 at 16:39
[2024-11-03 16:42] LABS: Add Manual Diff / Slide Review NO; Basophils Absolute Auto 100 /uL (0-100); Eosinophils Absolute Auto 0 /uL (0-450); Eosinophils Percent Auto 0.9 % (2-4); Hematocrit 40.7 % (41-53); Hemoglobin 13.7 g/dL (13.5-17.5); Lymphocytes Absolute Auto 900 /uL (1100-4500); Lymphocytes Percent Auto 17.6 % (25-40); Mean Corpuscular HGB Conc 33.6 % (30-36); Mean Corpuscular Hemoglobin 29.4 PG (26-34); Mean Corpuscular Volume 87.6 fL (80-100); Monocytes Absolute Auto 500 /uL (0-900); Monocytes Percent Auto 10.1 % (3-14); Neutrophils Absolute Auto 3800 /uL (1500-7000); Neutrophils Percent Auto 70.4 % (50-75); Platelet Count 296 X10^3/uL (150-400); Red Blood Cell Count 4.65 X10^6/uL (4.5-5.9); Red Cell Distribution Width 13.8 % (11.6-14.8); White Blood Cell Count 5.4 X10^3/uL (4.5-11.0)
[2024-11-03 16:43] LABS: INR 1.7 (0.9-1.3); Prothrombin Time 18.8 SECONDS (9.4-12.5)
[2024-11-03 16:46] LABS: PTT Partial Thromboplastin Tim 46 SECONDS (25.1-36.5)
[2024-11-03 16:48] LABS: Alanine Aminotransferase 27 IU/L (<50); Albumin Globulin Ratio 1.4 (1.0-2.8); Alkaline Phosphatase 53 U/L (38-126); Aspartate Aminotransferase 24 IU/L (17-59); BUN Creatinine Ratio 17.6 (6-22); Bilirubin Total 0.4 mg/dL (0.2-1.3); Blood Urea Nitrogen 22 mg/dL (9-20); Calcium 9.1 mg/dL (8.4-10.2); Carbon Dioxide 21 mmol/L (22-32); Chloride 107 mmol/L (98-107); Creatine Kinase 99 U/L (55-170); Estimated Glomerular Filt Rate > 60 mL/min (>60); Globulin 2.8 g/dL (1.7-4.1); Glucose 148 mg/dL (70-99); HEMOLYSIS < 15 (0-50); Lipase 72 U/L (23-300); Magnesium 1.7 mg/dL (1.6-2.3); Sodium 138 mmol/L (137-145); Total Protein 6.8 g/dL (6.3-8.2)
[2024-11-03 17:00] LABS: NT-proBNP (BNP-Adult 18+) 1870 pg/mL (<125); Troponin I < 0.012 ng/mL (0.01-0.034)
--- NOTE | 2024-11-03 17:01 | PC.NURSE ---
Pt reports he was at a graduation [employer] yesterday when he felt unwell and felt like he was going to pass out. Pt checked apple watch that revealed afib. Pt states he took 120mg diltiazem in the morning and an extra dose at noon of 180mg in hopes to break the afib; pt states this was unsuccessful. Pt reports he has no symptoms at this time.
--- NOTE | 2024-11-03 17:43 | ED_ITS ---
HPI - Arrhythmia/Palpitations <Neris Carrillo MD - Last Filed: 11/05/24 11:59> General Chief Complaint: Arrhythmia/Palpitations Stated Complaint: AFIB Time Seen by Provider: 11/03/24 16:56 Source: patient Mode of arrival: Ambulatory History of Present Illness HPI narrative: 69-year-old male history of paroxysmal atrial fibrillation status post ablation, coronary artery disease status post LAD stent, asthma, prostate cancer, type 2 diabetes prescribed metformin, here requesting cardioversion for his atrial fibrillation. Patient reports was celebrating at a graduation alliance party last night when after 530 he noted increase in heart rate and some palpitations. The EKG function on his smart watch told him he was in atrial fibrillation. He tried taking his metoprolol which did not help. He is prescribed Xarelto and has not missed any doses. Denies any chest pain. Does have some exertional dyspnea while in atrial fibrillation. No lower extremity edema swelling or recent illness. Related Data Home Medications ?Medication ?Instructions ?Recorded ?Confirmed Respironics DreamStation 02/19/21 08/16/24 atorvastatin 20 mg tablet 10 mg PO DAILY 08/12/2207/21 Previous Rx's ?Medication ?Instructions ?Recorded dronedarone 400 mg tablet (Multaq) 400 mg PO BID #60 t abs 10/19/18 tadalafil 10 mg tablet 10 mg PO DAILY PRN sexual ac tivity 08/08/23 #30 tabs pantoprazole 20 mg tablet,delayed 20 mg PO DAILY #90 t abs 12/25/23 release diltiazem HCl 120 mg 120 mg PO DAILY #30 caps capsule,extended release 24 hr cetirizine 10 mg tablet See Rx Instructions .Route 1 .COMPLEX #90 tabs rivaroxaban 20 mg tablet (Xarelto) See Rx Instructions .Route 03/12/24 .COMPLEX #90 tabs fluticasone propionate 50 See Rx Instructions .Route 1 06/23/23 mcg/actuation nasal .COMPLEX #48 grams spray,suspension tadalafil 5 mg tablet (Cialis) 5 mg PO DAILY #90 tabs 04/26/24 prednisone 50 mg tablet 50 mg PO DAILY #4 tabs 04/28 blood sugar diagnostic (Blood #100 ea 05/31/24 Glucose Test strips) blood-glucose meter #1 ea 05/31/24 lancets #100 ea 05/31/24 montelukast 10 mg tablet 10 mg PO QPM #90 tabs budesonide-formoterol HFA 80 2 puff inhalation BID #30 .6 grams 07/04/24 mcg-4.5 mcg/actuation aerosol inhaler metformin 1,000 mg tablet 1,000 mg PO BID #180 tabs albuterol sulfate 90 mcg/actuation 2 puff inhalation Q 6H PRN 10/21/24 aerosol inhaler bronchospasm #8.5 grams Allergies Allergy/AdvReac Type Severity Reaction Status Date / Time No Known Drug Allergies Allergy Verified 11/03/24 15:56 Review of Systems <Neris Carrillo MD - Last Filed: 11/05/24 11:59> Review of Systems Narrative: Pertinent ROS obtained and negative except as stated in HPI Patient History <Neris Carrillo MD - Last Filed: 11/05/24 11:59> Medical History Uncontrolled type 2 diabetes mellitus with hyperglycemia History of radiation therapy BPH w urinary obs/LUTS 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 tract symptoms Erectile dysfunction History of prostate cancer Hx of seasonal allergies 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 Diabetes type 2, controlled (~10/2020) Periodic limb movement disorder (PLMD) Obesity (BMI 30-39.9) Obstructive sleep apnea Vision disorder Shoulder pain (~2007) Tinnitus (~2004) Hearing loss (~2007) Colon polyps (~2015) Paroxysmal atrial fibrillation (~2013) Asthma (~1993) GERD (gastroesophageal reflux disease) (~1999) Prostate cancer (~2007) Seasonal allergies (~1993) Surgical History Hx of transurethral resection of prostate Hx of prostate biopsy History of circumcision History of liver biopsy Anesthesia History of appendectomy (~1990) H/O hernia repair S/P TURP History of radiofrequency ablation (RFA) procedure for cardiac arrhythmia History of cardiac catheterization Family History Father Cancer History of heart disease Hypertension Mother Cancer Mental health problem Other Hyperlipidemia Social History alcohol intake: current substance use type: does not use caffeine: Yes Type(s) of exercise: regular exercise frequency: 1-2 times per week duration: > 90 minutes/day alcohol intake frequency: 0-2 drinks per day Exam <Neris Carrillo MD - Last Filed: 11/05/24 11:59> Initial Vital Signs Initial Vital Signs: Vital Signs Temperature 97.7 F 11/03/24 15:56 Pulse Rate 71 11/03/24 15:56 Respiratory Rate 16 11/03/24 15:56 Blood Pressure 137/85 11/03/24 15:56 Pulse Oximetry 96 11/03/24 15:56 Oxygen Delivery Method Room Air 11/03/24 15:56 Constitutional: Well appearing, no acute distress Head: NCAT Cardiovascular: Irregularly irregular, no murmur or rub Pulmonary: CTA bilaterally, no respiratory distress Abdominal: soft, non-tender Extremities: No LE edema Skin: warm and dry, no diaphoresis Neurological: Alert and oriented x3 <Farhat Renee DO - Last Filed: 11/03/24 20:01> Initial Vital Signs Initial Vital Signs: Vital Signs Temperature 97.7 F 11/03/24 15:56 Pulse Rate 71 11/03/24 15:56 Respiratory Rate 16 11/03/24 15:56 Blood Pressure 137/85 11/03/24 15:56 Pulse Oximetry 96 11/03/24 15:56 Oxygen Delivery Method Room Air 11/03/24 15:56 Procedures <Farhat Renee DO - Last Filed: 11/03/24 20:01> Cardioversion Time of Cardioversion: 18:56 Consent Signed: Yes Indication: AFib Stability: Stable Number of attempts (shocks): 1 Joules used: 200 Cardiac rhythm post-cardioversion: Normal sinus Procedural Sedation Time of procedure: 18:56 Consent signed: Yes Time out performed: Yes Indication: cardioversion Preparation: teletypesetter monitor applied, pulse oximeter, capnometry used, supplemental O2 applied, suction/airway equipment at bedside and IV secured Fentanyl: IV Fentanyl dose (mcg): 50 IV Etomidate dose (mg): 5 Course <Neris Carrillo MD - Last Filed: 11/05/24 11:59> Orders Ordered: Discontinued Medications Aspirin (Aspirin 81 Mg Chew Tab) 324 mg PO NOW ONE Stop: 11/03/24 16:01 Last Admin: 11/03/24 16:47 Dose: Not Given Documented By: TERI Etomidate (Etomidate 2 Mg/Ml 10 Ml Vial) 9 mg IV NOW ONE Stop: 11/03/24 17:43 Last Admin: 11/03/24 19:33 Dose: Not Given Documented By: TERI Etomidate (Etomidate 2 Mg/Ml 10 Ml Vial) 5 mg IV NOW ONE Stop: 11/03/24 18:56 Last Admin: 11/03/24 18:58 Dose: 5 mg Documented By: TERI Fentanyl (Fentanyl 100 Mcg/2 Ml Inj) 50 mcg IV NOW ONE Stop: 11/03/24 17:43 Last Admin: 11/03/24 18:56 Dose: 50 mcg Documented By: TERI Vital Signs Vital signs: Vital Signs - 8 hr 11/03/24 15:56 11/03/24 16:07 11/03/24 16:28 Temperature 97.7 F Pulse Rate 71 103 H Respiratory Rate 16 Blood Pressure 137/85 105/74 Pulse Oximetry 96 97 Oxygen Delivery Method Room Air 11/03/24 16:28 11/03/24 16:30 11/03/24 16:31 Temperature Pulse Rate 116 H 115 H Respiratory Rate 21 18 Blood Pressure 125/83 Pulse Oximetry 97 96 Oxygen Delivery Method 11/03/24 16:31 11/03/24 17:03 11/03/24 17:04 Temperature Pulse Rate 126 H 147 H Respiratory Rate 21 Blood Pressure 126/73 Pulse Oximetry 97 98 Oxygen Delivery Method 11/03/24 17:04 11/03/24 17:30 11/03/24 17:30 Temperature Pulse Rate 126 H 118 H Respiratory Rate 14 19 Blood Pressure 144/78 H Pulse Oximetry 97 96 Oxygen Delivery Method 11/03/24 18:00 11/03/24 18:30 11/03/24 18:53 Temperature Pulse Rate 128 H 123 H 120 H Respiratory Rate 17 Blood Pressure Pulse Oximetry 97 97 97 Oxygen Delivery Method 11/03/24 18:53 11/03/24 18:55 11/03/24 18:55 Temperature Pulse Rate 123 H Respiratory Rate 28 H Blood Pressure 174/76 H 124/68 Pulse Oximetry 97 Oxygen Delivery Method 11/03/24 18:56 11/03/24 18:56 11/03/24 18:56 Temperature Pulse Rate 123 H 117 H Respiratory Rate 16 19 Blood Pressure 128/60 128/60 Pulse Oximetry 97 97 Oxygen Delivery Method 11/03/24 18:58 11/03/24 18:58 11/03/24 18:59 Temperature Pulse Rate 121 H 121 H Respiratory Rate 20 120 H Blood Pressure 130/74 130/74 Pulse Oximetry 97 97 Oxygen Delivery Method 11/03/24 19:00 11/03/24 19:00 11/03/24 19:05 Temperature Pulse Rate 79 79 Respiratory Rate 16 20 Blood Pressure 150/70 H 142/65 H Pulse Oximetry 95 98 Oxygen Delivery Method 11/03/24 19:05 11/03/24 19:05 11/03/24 19:10 Temperature 97.7 F Pulse Rate 74 60 Respiratory Rate 30 H 16 Blood Pressure 142/65 H 129/64 Pulse Oximetry 98 94 Oxygen Delivery Method 11/03/24 19:10 11/03/24 19:10 11/03/24 19:15 Temperature Pulse Rate 63 64 Respiratory Rate 16 Blood Pressure 129/64 127/69 Pulse Oximetry 95 97 Oxygen Delivery Method 11/03/24 19:15 11/03/24 19:15 11/03/24 19:20 Temperature Pulse Rate 67 62 Respiratory Rate 13 16 Blood Pressure 127/69 126/73 Pulse Oximetry 97 96 Oxygen Delivery Method 11/03/24 19:20 11/03/24 19:20 11/03/24 19:25 Temperature Pulse Rate 65 67 Respiratory Rate 13 16 Blood Pressure 126/73 117/65 Pulse Oximetry 96 97 Oxygen Delivery Method 11/03/24 19:25 11/03/24 19:25 11/03/24 19:30 Temperature Pulse Rate 63 68 Respiratory Rate 18 16 Blood Pressure 117/65 123/76 Pulse Oximetry 96 97 Oxygen Delivery Method 11/03/24 19:30 Temperature Pulse Rate 65 Respiratory Rate 27 H Blood Pressure Pulse Oximetry 96 Oxygen Delivery Method <Farhat Renee DO - Last Filed: 11/03/24 20:01> Orders Ordered: Discontinued Medications Aspirin (Aspirin 81 Mg Chew Tab) 324 mg PO NOW ONE Stop: 11/03/24 16:01 Last Admin: 11/03/24 16:47 Dose: Not Given Documented By: KW Etomidate (Etomidate 2 Mg/Ml 10 Ml Vial) 9 mg IV NOW ONE Stop: 11/03/24 17:43 Last Admin: 11/03/24 19:33 Dose: Not Given Documented By: TERI Etomidate (Etomidate 2 Mg/Ml 10 Ml Vial) 5 mg IV NOW ONE Stop: 11/03/24 18:56 Last Admin: 11/03/24 18:58 Dose: 5 mg Documented By: TERI Fentanyl (Fentanyl 100 Mcg/2 Ml Inj) 50 mcg IV NOW ONE Stop: 11/03/24 17:43 Last Admin: 11/03/24 18:56 Dose: 50 mcg Documented By: TERI Vital Signs Vital signs: Vital Signs - 8 hr 11/03/24 15:56 11/03/24 16:07 11/03/24 16:28 Temperature 97.7 F Pulse Rate 71 103 H Respiratory Rate 16 Blood Pressure 137/85 105/74 Pulse Oximetry 96 97 Oxygen Delivery Method Room Air 11/03/24 16:28 11/03/24 16:30 11/03/24 16:31 Temperature Pulse Rate 116 H 115 H Respiratory Rate 21 18 Blood Pressure 125/83 Pulse Oximetry 97 96 Oxygen Delivery Method 11/03/24 16:31 11/03/24 17:03 11/03/24 17:04 Temperature Pulse Rate 126 H 147 H Respiratory Rate 21 Blood Pressure 126/73 Pulse Oximetry 97 98 Oxygen Delivery Method 11/03/24 17:04 11/03/24 17:30 11/03/24 17:30 Temperature Pulse Rate 126 H 118 H Respiratory Rate 14 19 Blood Pressure 144/78 H Pulse Oximetry 97 96 Oxygen Delivery Method 11/03/24 18:00 11/03/24 18:30 11/03/24 18:53 Temperature Pulse Rate 128 H 123 H 120 H Respiratory Rate 17 Blood Pressure Pulse Oximetry 97 97 97 Oxygen Delivery Method 11/03/24 18:53 11/03/24 18:55 11/03/24 18:55 Temperature Pulse Rate 123 H Respiratory Rate 28 H Blood Pressure 174/76 H 124/68 Pulse Oximetry 97 Oxygen Delivery Method 11/03/24 18:56 11/03/24 18:56 11/03/24 18:56 Temperature Pulse Rate 123 H 117 H Respiratory Rate 16 19 Blood Pressure 128/60 128/60 Pulse Oximetry 97 97 Oxygen Delivery Method 11/03/24 18:58 11/03/24 18:58 11/03/24 18:59 Temperature Pulse Rate 121 H 121 H Respiratory Rate 20 120 H Blood Pressure 130/74 130/74 Pulse Oximetry 97 97 Oxygen Delivery Method 11/03/24 19:00 11/03/24 19:00 11/03/24 19:05 Temperature Pulse Rate 79 79 Respiratory Rate 16 20 Blood Pressure 150/70 H 142/65 H Pulse Oximetry 95 98 Oxygen Delivery Method 11/03/24 19:05 11/03/24 19:05 11/03/24 19:10 Temperature 97.7 F Pulse Rate 74 60 Respiratory Rate 30 H 16 Blood Pressure 142/65 H 129/64 Pulse Oximetry 98 94 Oxygen Delivery Method 11/03/24 19:10 11/03/24 19:10 11/03/24 19:15 Temperature Pulse Rate 63 64 Respiratory Rate 16 Blood Pressure 129/64 127/69 Pulse Oximetry 95 97 Oxygen Delivery Method 11/03/24 19:15 11/03/24 19:15 11/03/24 19:20 Temperature Pulse Rate 67 62 Respiratory Rate 13 16 Blood Pressure 127/69 126/73 Pulse Oximetry 97 96 Oxygen Delivery Method 11/03/24 19:20 11/03/24 19:20 11/03/24 19:25 Temperature Pulse Rate 65 67 Respiratory Rate 13 16 Blood Pressure 126/73 117/65 Pulse Oximetry 96 97 Oxygen Delivery Method 11/03/24 19:25 11/03/24 19:25 11/03/24 19:30 Temperature Pulse Rate 63 68 Respiratory Rate 18 16 Blood Pressure 117/65 123/76 Pulse Oximetry 96 97 Oxygen Delivery Method 11/03/24 19:30 Temperature Pulse Rate 65 Respiratory Rate 27 H Blood Pressure Pulse Oximetry 96 Oxygen Delivery Method MDM - Arrhythmia/Palpitations <Neris Carrillo MD - Last Filed: 11/05/24 11:59> Lab Data 11/03/24 16:25 11/03/24 16:25 Labs: Lab Results 11/03/24 Range/Units 16:25 WBC 5.4 (4.5-11.0) X10^3/uL RBC 4.65 (4.5-5.9) X10^6/uL Hgb 13.7 (13.5-17.5) g/dL Hct 40.7 L (41-53) % MCV 87.6 (80-100) fL MCH 29.4 (26-34) PG MCHC 33.6 (30-36) % RDW 13.8 (11.6-14.8) % Plt Count 296 (150-400) X10^3/uL Neut % (Auto) 70.4 (50-75) % Lymph % (Auto) 17.6 L (25-40) % [place] % (Auto) 10.1 (3-14) % Eos % (Auto) 0.9 L (2-4) % Baso % (Auto) 1.0 (0-2) % Neut # (Auto) 3800 (8983-1527) /uL Lymph # (Auto) 900 L (1544-0794) /uL [place] # (Auto) 500 (0-900) /uL Eos # (Auto) 0 (0-450) /uL Baso # (Auto) 100 (0-100) /uL PT 18.8 H (9.4-12.5) SECONDS INR 1.7 H (0.9-1.3) APTT 46 H (25.1-36.5) SECONDS Sodium 138 (137-145) mmol/L Potassium 4.0 (3.4-5.1) mmol/L Chloride 107 (98-107) mmol/L Carbon Dioxide 21 L (22-32) mmol/L BUN 22 H (9-20) mg/dL Creatinine 1.25 (0.66-1.25) mg/dL Estimated GFR > 60 (>60) mL/min BUN/Creatinine Ratio 17.6 (6-22) Glucose 148 H (70-99) mg/dL Calcium 9.1 (8.4-10.2) mg/dL Magnesium 1.7 (1.6-2.3) mg/dL Total Bilirubin 0.4 (0.2-1.3) mg/dL AST 24 (17-59) IU/L ALT 27 (<50) IU/L Alkaline Phosphatase 53 (38-126) U/L Total Creatine Kinase 99 (55-170) U/L Troponin I < 0.012 (0.01-0.034) ng/mL NT-Pro-B Natriuret Pep 1870 H (<125) pg/mL Total Protein 6.8 (6.3-8.2) g/dL Albumin 4.0 (3.5-5.0) g/dL Globulin 2.8 (1.7-4.1) g/dL Albumin/Globulin Ratio 1.4 (1.0-2.8) Lipase 72 (23-300) U/L MDM Narrative Medical decision making narrative: In brief, this is a 69-year-old male with history of asthma, atrial fibrillation status post ablation, prescribed diltiazem, Xarelto, type 2 diabetes, coronary artery disease, here with palpitations and exertional dyspnea since last night. He attributes his symptoms to atrial fibrillation. He reports he thinks combination of being dehydrated and having a sugary alcoholic beverage last night may have triggered it. He denies chest pain but has exertional dyspnea. Patient's application systems engineer is Dr. Michelle In chart review: I see in chart review the patient was in ED last year and underwent cardioversion with etomidate. Patient reports no issues with the sedative medication On arrival to the emergency department, the patient is noted to be tachycardic, normotensive. Denies any chest pressure. Vital signs are stable Exam is pertinent for: Irregularly irregular rhythm without rales or lower extremity edema Initial treatment plan includes: Check laboratories, remain on telemetry, patient anticoagulated and so anticipate cardioversion EKG 16 10: Atrial fibrillation with RVR rate of 106, normal QRS 108, QTC 459, normal axis. No ST segment elevation or depression Laboratories pertinent for: No leukocytosis or anemia, INR 1.7, APTT 46, PT 18, normal electrolytes, nonelevated troponin, BNP slightly elevated 18 70, likely related to afib/rvr Imaging pertinent for: Single-view chest x-ray shows no airspace consolidation or pleural effusion, normal heart size Pt signed out to Dr. Pena at change of shift pending reevaluation and probable cardioversion. 183: Patient is signed out to me by Dr. Carrillo, Patient is a 69-year-old male with a history of AFib on Xarelto diltiazem is status post ablation, presenting for palpitations. States that last night after drinking some alcohol noticed that he went into AFib. Workup performed here without any acute findings but patient is noted to be in AFib with RVR, he has a history of cardioversion last year and is requesting to be cardioverted at this time. Patient has been anticoagulated compliant with his Xarelto, final disposition pending cardioversion and re-evaluation. 2000: Patient re-evaluated no new complaints at this time, he states that he is feeling better, was able to pass p.o. liquids and solids here, patient was given strict return precautions he verbalized understanding of this and agrees to being discharged home with outpatient follow up, he was instructed follow up with his application systems engineer and primary care doctor. <Farhat Renee, DO - Last Filed: 11/03/24 20:01> Lab Data Labs: Lab Results 11/03/24 Range/Units 16:25 WBC 5.4 (4.5-11.0) X10^3/uL RBC 4.65 (4.5-5.9) X10^6/uL Hgb 13.7 (13.5-17.5) g/dL Hct 40.7 L (41-53) % MCV 87.6 (80-100) fL MCH 29.4 (26-34) PG MCHC 33.6 (30-36) % RDW 13.8 (11.6-14.8) % Plt Count 296 (150-400) X10^3/uL Neut % (Auto) 70.4 (50-75) % Lymph % (Auto) 17.6 L (25-40) % [place] % (Auto) 10.1 (3-14) % Eos % (Auto) 0.9 L (2-4) % Baso % (Auto) 1.0 (0-2) % Neut # (Auto) 3800 (6509-5328) /uL Lymph # (Auto) 900 L (7933-8967) /uL [place] # (Auto) 500 (0-900) /uL Eos # (Auto) 0 (0-450) /uL Baso # (Auto) 100 (0-100) /uL PT 18.8 H (9.4-12.5) SECONDS INR 1.7 H (0.9-1.3) APTT 46 H (25.1-36.5) SECONDS Sodium 138 (137-145) mmol/L Potassium 4.0 (3.4-5.1) mmol/L Chloride 107 (98-107) mmol/L Carbon Dioxide 21 L (22-32) mmol/L BUN 22 H (9-20) mg/dL Creatinine 1.25 (0.66-1.25) mg/dL Estimated GFR > 60 (>60) mL/min BUN/Creatinine Ratio 17.6 (6-22) Glucose 148 H (70-99) mg/dL Calcium 9.1 (8.4-10.2) mg/dL Magnesium 1.7 (1.6-2.3) mg/dL Total Bilirubin 0.4 (0.2-1.3) mg/dL AST 24 (17-59) IU/L ALT 27 (<50) IU/L Alkaline Phosphatase 53 (38-126) U/L Total Creatine Kinase 99 (55-170) U/L Troponin I < 0.012 (0.01-0.034) ng/mL NT-Pro-B Natriuret Pep 1870 H (<125) pg/mL Total Protein 6.8 (6.3-8.2) g/dL Albumin 4.0 (3.5-5.0) g/dL Globulin 2.8 (1.7-4.1) g/dL Albumin/Globulin Ratio 1.4 (1.0-2.8) Lipase 72 (23-300) U/L ECG Data Interpretation: Post cardioversion EKG interpreted by ED physician sinus 74 beats per minute, QTC [address] changes no STEMI MDM Narrative Medical decision making narrative: In brief, this is a 69-year-old male with history of asthma, atrial fibrillation status post ablation, prescribed diltiazem, Xarelto, type 2 diabetes, coronary artery disease, here with palpitations and exertional dyspnea since last night. He attributes his symptoms to atrial fibrillation. He reports he thinks combination of being dehydrated and having a sugary alcoholic beverage last night may have triggered it. Patient's application systems engineer is Dr. Michelle In chart review: I see in chart review the patient was in ED last year and underwent cardioversion with etomidate. Patient reports no issues with the sedative medication On arrival to the emergency department, the patient is noted to be tachycardic, normotensive. Denies any chest pressure. Vital signs are stable Exam is pertinent for: Irregularly irregular rhythm without rales or lower extremity edema Initial treatment plan includes: Check laboratories, remain on telemetry, patient anticoagulated and so anticipate cardioversion EKG 16 10: Atrial fibrillation with RVR rate of 106, normal QRS 108, QTC 459, normal axis. No ST segment elevation or depression Laboratories pertinent for: No leukocytosis or anemia, INR 1.7, APTT 46, PT 18, normal electrolytes, nonelevated troponin, BNP slightly elevated 18 70 Imaging pertinent for: Single-view chest x-ray shows no airspace consolidation or pleural effusion, normal heart size Return precautions discussed and provided prior to discharge 183: Patient is signed out to me by Dr. Carrillo, Patient is a 69-year-old male with a history of AFib on Xarelto diltiazem is status post ablation, presenting for palpitations. States that last night after drinking some alcohol noticed that he went into AFib. Workup performed here without any acute findings but patient is noted to be in AFib with RVR, he has a history of cardioversion last year and is requesting to be cardioverted at this time. Patient has been anticoagulated compliant with his Xarelto, final disposition pending cardioversion and re-evaluation. 1999: Patient re-evaluated no new complaints at this time, he states that he is feeling better, was able to pass p.o. liquids and solids here, patient was given strict return precautions he verbalized understanding of this and agrees to being discharged home with outpatient follow up, he was instructed follow up with his application systems engineer and primary care doctor. Discharge Plan Departure Patient Disposition: Home Clinical Impression: A-fib Activity Restrictions/Additional Instructions: Please follow up with your primary care doctor and your application systems engineer Please read the discharge instructions sheet carefully and bring all papers to all doctor follow-up visits, as it may contain information that your doctor may want to see. Disease processes change and evolve, if your symptoms worsen or if you develop any new symptoms that are concerning to you please return for evaluation. Your evaluation today does not show any evidence of any life- threatening/serious illnesses requiring admission to the hospital or surgery. Please follow-up with your doctor for re-evaluation in approximately 1 day. Seek immediate medical attention for any worrisome symptoms. *If you do not have a primary care provider please contact the [facility] Resource line at [phone]. They will ask some questions about your medical history and help get you set up with a doctor in the community. Prescriptions: No Action prednisone 50 mg tablet 50 mg PO DAILY Qty: 4 0RF tadalafil 10 mg tablet 10 mg PO DAILY PRN (Reason: sexual activity) Qty: 30 3RF Rx Instructions: administer approximately 30min before sexual activity; do not use more than 1 dose per 24hrs pantoprazole 20 mg tablet,delayed release (DR/EC) 20 mg PO DAILY Qty: 90 3RF diltiazem HCl 120 mg capsule,extended release 24hr 120 mg PO DAILY Qty: 30 0RF Xarelto 20 mg tablet See Rx Instructions .ROUTE .COMPLEX Qty: 90 3RF Dose Instruction: TAKE 1 TABLET DAILY Rx Instructions: TAKE 1 TABLET DAILY cetirizine 10 mg tablet See Rx Instructions .ROUTE .COMPLEX Qty: 90 3RF Dose Instruction: TAKE 1 TABLET AT BEDTIME Rx Instructions: TAKE 1 TABLET AT BEDTIME fluticasone propionate 50 mcg/actuation spray,suspension See Rx Instructions .ROUTE .COMPLEX Qty: 48 3RF Dose Instruction: USE 2 SPRAYS NASALLY DAILY Rx Instructions: USE 2 SPRAYS NASALLY DAILY (DME) blood-glucose meter Misc See Rx Instructions .Route Qty: 1 0RF Rx Instructions: Use to test BS BID. (DME) Blood Glucose Test Strip See Rx Instructions .Route Qty: 100 6RF Rx Instructions: Use to test BS BID. (DME) lancets Misc See Rx Instructions .Route Qty: 100 6RF Rx Instructions: Use to test BS BID montelukast 10 mg tablet 10 mg PO QPM Qty: 90 3RF budesonide-formoterol 80-4.5 mcg/actuation HFA aerosol inhaler 2 puff inhalation BID Qty: 30.6 2RF metformin 1,000 mg tablet 1,000 mg PO BID Qty: 180 3RF albuterol sulfate 90 mcg/actuation HFA aerosol inhaler 2 puff INHALATION Q6H PRN (Reason: bronchospasm) Qty: 8.5 3RF atorvastatin 20 mg tablet 10 mg PO DAILY Multaq 400 mg tablet 400 mg PO BID Qty: 60 0RF Rx Instructions: must administer with a meal/food (DME) Respironics DreamStation See Rx Instructions .Route .MEDSUPPLY Rx Instructions: Respironics DreamStation Min Pressure: 5 Max Pressure: 15 DEM: [place] tadalafil [Cialis] 5 mg tablet 5 mg PO DAILY Qty: 90 3RF Referrals: Huseyin Lee MD [Primary Care Provider, Internal Medicine] Stand Alone Forms: Patient Portal/API
[2024-11-03] MEDS: fentaNYL 100 MCG/2 ML INJ 50 MCG IV (18:56)
[2024-11-03] MEDS: ETOMIDATE 2 MG/ML 10 ML VIAL 5 MG IV (18:58)
--- NOTE | 2024-11-03 19:01 | EKG_ITS ---
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
== END 2024-11-03 20:09 | disposition home or self-care (01) ==
PROVIDERS: Student in an Organized Health Care Education/Training Program; Emergency Provider Student in an Organized Health Care Education/Training Program; PCP Internal Medicine
DX: I48.91 Unspecified atrial fibrillation (principal); I25.10 Atherosclerotic heart disease of native coronary artery without angina pectoris; Z95.5 Presence of coronary angioplasty implant and graft; Z79.01 Long term (current) use of anticoagulants
CPT/HCPCS: 71045; 80053; 82550; 83690; 83735; 83880; 84484; 85025; 85610; 85730; 92960; 93005; 96374; 99152; 99153; 99284; 99285; J3010

== ENCOUNTER → 2024-12-03 06:59 | Outpatient (CLI) | payer MEDICARE, OTHER, SELFPAY ==
[2024-12-03 07:54] LABS: Alanine Aminotransferase 28 IU/L (<50); Albumin 4.4 g/dL (3.5-5.0); Albumin Globulin Ratio 1.7 (1.0-2.8); Alkaline Phosphatase 61 U/L (38-126); Blood Urea Nitrogen 20 mg/dL (9-20); Calcium 9.4 mg/dL (8.4-10.2); Carbon Dioxide 23 mmol/L (22-32); Chloride 105 mmol/L (98-107); Cholesterol 112 mg/dL (140-199); Estimated Glomerular Filt Rate > 60 mL/min (>60); Globulin 2.6 g/dL (1.7-4.1); Glucose 146 mg/dL (70-99); HDL Cholesterol 46 mg/dL (40-60); HEMOLYSIS < 15 (0-50); Potassium 4.6 mmol/L (3.4-5.1); Sodium 138 mmol/L (137-145); Total Protein 7.0 g/dL (6.3-8.2); Triglycerides 109 mg/dL (35-150)
[2024-12-03 08:24] LABS: Prostate Specific Antigen 0.403 ng/mL (0.10-4.00)
== END ==
PROVIDERS: PCP Internal Medicine; Referring Provider Internal Medicine; Visit Provider Urology
DX: C61 Malignant neoplasm of prostate (principal); E78.5 Hyperlipidemia, unspecified; I48.0 Paroxysmal atrial fibrillation
CPT/HCPCS: 36415; 80053; 80061; 84153

== ENCOUNTER → 2025-02-10 12:18 | Outpatient (CLI) | payer MEDICARE, OTHER, SELFPAY ==
[2025-02-10 14:16] LABS: Prostate Specific Antigen 0.269 ng/mL (0.10-4.00)
== END ==
PROVIDERS: PCP Internal Medicine; Referring Provider Radiology Radiation Oncology; Visit Provider Radiology Radiation Oncology
DX: C61 Malignant neoplasm of prostate (principal)
CPT/HCPCS: 36415; 84153

== ENCOUNTER → 2025-04-02 07:05 | Outpatient (CLI) | payer MEDICARE, OTHER, SELFPAY ==
[2025-04-02 07:46] LABS: Add Manual Diff / Slide Review NO; Hematocrit 40.5 % (41-53); Hemoglobin 13.6 g/dL (13.5-17.5); Lymphocytes Absolute Auto 1000 /uL (1100-4500); Mean Corpuscular HGB Conc 33.6 % (30-36); Mean Corpuscular Hemoglobin 28.9 PG (26-34); Mean Corpuscular Volume 85.9 fL (80-100); Platelet Count 304 X10^3/uL (150-400)
[2025-04-02 09:02] LABS: Alanine Aminotransferase 27 IU/L (<50); Albumin 4.3 g/dL (3.5-5.0); Albumin Globulin Ratio 1.7 (1.0-2.8); Alkaline Phosphatase 60 U/L (38-126); Blood Urea Nitrogen 17 mg/dL (9-20); Calcium 9.5 mg/dL (8.4-10.2); Carbon Dioxide 24 mmol/L (22-32); Chloride 105 mmol/L (98-107); Cholesterol 96 mg/dL (140-199); Estimated Glomerular Filt Rate > 60 mL/min (>60); Globulin 2.5 g/dL (1.7-4.1); Glucose 181 mg/dL (70-99); HDL Cholesterol 43 mg/dL (40-60); HEMOLYSIS < 15 (0-50); Potassium 5.2 mmol/L (3.4-5.1); Sodium 141 mmol/L (137-145); Total Protein 6.8 g/dL (6.3-8.2); Triglycerides 87 mg/dL (35-150)
[2025-04-02 12:38] LABS: Hemoglobin A1C% w Est Avg Glu 7.2 % (4.0-6.0)
[2025-04-02 13:12] LABS: Thyroid Stimulating Hormone 1.81 uIU/mL (0.47-4.68)
== END ==
PROVIDERS: PCP Internal Medicine; Referring Provider Internal Medicine; Visit Provider Nurse Practitioner
DX: E78.5 Hyperlipidemia, unspecified (principal); E11.9 Type 2 diabetes mellitus without complications; I48.0 Paroxysmal atrial fibrillation
CPT/HCPCS: 36415; 80053; 80061; 83036; 84443; 85025